=== PATIENT | female | born 1940 | race Caucasian/White ===

== ENCOUNTER 2017-02-19 08:20 | Inpatient (IN) | payer OTHER, MEDICARE ==
[~2017-02-19] VITALS: Ht 165.1 cm; Wt 119.2 kg
[2017-02-19] VITALS (10 sets, daily range): BP systolic 115–156; BP diastolic 64–109; PULSE 113–118; RESP 16–35; TEMP 97.9–98.2; O2SAT 0–99
[~2017-02-19 08:20] MED LIST: ALBU17I INH; AMLO5TAB96 PO; ATEN1TAB73 PO; BUME2TAB PO; CARB200T16 PO; DIGO.125 PO; FLOVENT110 MCG/A INH; IBUP-238 PO; IPRA0.02 INH; LOMO PO; LORT7.5T3 PO; MONT10TA2 PO; PHEN60TA PO; PREM0.622 PO; RANI150 PO; SIMV20 PO; SYNT175T PO
[2017-02-19] MEDS ORDERED: FUROSEMIDE 40 MG/4 ML VIAL IVP ONE ×2 (08:45→13:30)
[2017-02-19] MEDS ORDERED: SODIUM CHLORIDE 0.9% FLUSH 10 ML FLUSH IVF PRN (08:45)
[2017-02-19] MEDS ORDERED: RESP: ALBUTEROL 2.5 MG/IPRATROPIUM 0.5 MG NEB (SCH) INH ONE ×2 (08:45→13:30)
[2017-02-19] MEDS ORDERED: methylPREDNISolone SOD SUCC 125 MG/2 ML VIAL IV PUSH ONE ×2 (08:45→13:30)
--- NOTE | 2017-02-19 08:48 | PD ---
HPI Chief Complaint: Chest Pain Time Seen by Provider: 08:34 Travel History International Travel<30 days: No Contact w/Intl Traveler<30days: No Traveled to known affect area: No History of Present Illness HPI patient states she was feeling chest pain, substernal, 8/10, while at rest, alleviated with 2 ntg sl given by ems...however afterwards ptient c/o lightheadedness and sob....however her next few words were , "i'm going home" " i don't want to be here or stay" I advised patient of abnormal ekg, "it doesn' t matter, i'm 76 y/o and you can't make me stay" all:nkda pmhx:afib recent dx on eliquis, hyperlipidemia, hypothyroid, seizure, htn, copd on 3l nc PFSH Past Medical History Arthritis: Yes Asthma: Yes Autoimmune Disease: No Blood Disorders: No Anxiety: Yes Depression: Yes Heart Rhythm Problems: Yes Cancer: Yes (LEFT BREAST) Cardiovascular Problems: Yes (HTN, CHF, A-FIB ) High Cholesterol: Yes (TWO) Chemotherapy: No Chest Pain: Yes Congestive Heart Failure: Yes COPD: No Cerebrovascular Accident: Yes (6 YEARS AGO) Diabetes: No Diminished Hearing: No Endocrine: Yes GERD: No Glaucoma: No Genitourinary: No Headaches: Yes (BAD HEADACHES) Hepatitis: No Hiatal Hernia: Yes Hypertension: Yes Immune Disorder: No Musculoskeletal: Yes Neurologic: Yes Psychiatric: Yes Reproductive: Yes (HAS HAD A HYSTERECTOMY AND TUBES TIED) Respiratory: Yes (COPD) Myocardial Infarction: Yes Radiation Therapy: No Seizures: Yes (LAST ONE ABOUT 12 YEARS AGO) Sickle Cell Disease: No Sleep Apnea: No Thyroid Disease: Yes (HYPOTHYROIDISM) Ulcer: Yes : 4 Para: 4 Past Surgical History Abdominal Surgery: No AICD: No Appendectomy: No Arteriovenous Shunt: No Cardiac Surgery: No Cholecystectomy: No Ear Surgery: No Endocrine Surgery: No Eye Surgery: No Genitourinary Surgery: No Gynecologic Surgery: Yes (TUBES TIED AND HYSTERECTOMY) Hysterectomy: Yes Insulin Pump: No Joint Replacement: No Oral Surgery: No Pacemaker: No Thoracic Surgery: No Social History Alcohol Use: No Tobacco Use: Yes (PACK AND A HALF A DAY) Substance Use: No Allergies-Medications (Allergen,Severity, Reaction): Coded Allergies: No Known Allergies (Verified Allergy, Mild, 02/19/17) Reported Meds & Prescriptions Reported Meds & Active Scripts Active Motrin (Ibuprofen) 800 Mg Tab 1 Tab PO Q8 Lortab 7.5/500 (Acetaminophen/Hydrocodone Bitart) Tab 1 Tab PO Q6HPRN Reported Tenormin (Atenolol) 25 Mg Tab 25 Mg PO DAILY Lomotil (Diphenoxylate HCl/Atropine) 1 Tab Tab 1 Tab PO Tegretol (Carbamazepine) 200 Mg Tab 200 Mg PO Zocor (Simvastatin) 20 Mg Tab 20 Mg PO HS Bumex (Bumetanide) 2 Mg Tab 2 Mg PO DAILY Atrovent Ud 0.02% (0.5 Mg/2.5 Ml) (Ipratropium [place]) 0.5 Mg/2.5 Ml Nebu 0.5 Mg INH ONCE Flovent HFA (Fluticasone Propionate) 110 Mcg Aero 1 Puff INH BID Singulair (Montelukast Sodium) 10 Mg Tab 10 Mg PO HS Lanoxin (Digoxin) 0.125 Mg Tab 0.125 Mg PO DAILY Zantac (Ranitidine HCl) 150 Mg Tab 150 Mg PO BID Premarin (Estrogens Conjugated) 0.625 Mg Tab 0.625 Mg PO DAILY Proventil Mdi (Albuterol Sulfate) 17 Gm Aero 1 Puff INH Q6 Synthroid (Levothyroxine Sodium) 175 Mcg Tab 175 Mcg PO DAILY Norvasc (Amlodipine Besylate) 5 Mg Tab 5 Mg PO DAILY Phenobarbital 60 Mg Tab 64.8 Mg PO Review of Systems General / Constitutional: No: Fever Eyes: No: Visual changes HENT: No: Headaches Cardiovascular: Positive: Chest Pain or Discomfort Respiratory: Positive: Shortness of Breath Gastrointestinal: No: Abdominal Pain Genitourinary: No: Dysuria Musculoskeletal: No: Pain Skin: No Rash Neurologic: No: Weakness Psychiatric: No: Depression Endocrine: No: Polydipsia Hematologic/Lymphatic: No: Easy Bruising Physical Exam Narrative GENERAL: SKIN: Warm and dry. HEAD: Atraumatic. Normocephalic. EYES: Pupils equal and round. No scleral icterus. No injection or drainage. ENT: No nasal bleeding or discharge. Mucous membranes pink and moist. NECK: Trachea midline. No JVD. CARDIOVASCULAR: Regular rate and rhythm. RESPIRATORY: minimal suprasternal accessory muscle use. decreased tv, wheezy throughout and scattered ronchi GASTROINTESTINAL: Abdomen soft, non-tender, nondistended. MUSCULOSKELETAL: Extremities without clubbing, cyanosis, or edema. No obvious deformities. NEUROLOGICAL: Awake and alert. No obvious cranial nerve deficits. Motor grossly within normal limits. Five out of 5 muscle strength in the arms and legs. Normal speech. PSYCHIATRIC: Appropriate mood and affect; insight and judgment normal. Data Data Last Documented VS Vital Signs Date Time Temp Pulse Resp B/P (MAP) Pulse Ox O2 Delivery O2 Flow Rate FiO2 02/19/17 08:30 98 Nasal Cannula 3.00 02/19/17 08:29 98.2 116 32 144/93 (110) Orders Orders Electrocardiogram (02/19/17 08:34) Complete Blood Count With Diff (02/19/17 08:34) Comprehensive Metabolic Panel (02/19/17 08:34) Prothrombin Time / Inr (Pt) (02/19/17 08:34) Act Partial Throm Time (Ptt) (02/19/17 08:34) Lactic Acid Sepsis Protocol (02/19/17 08:34) Ckmb (Isoenzyme) Profile (02/19/17 08:34) Troponin I (02/19/17 08:34) Urinalysis - C+S If Indicated (02/19/17 08:34) Blood Culture (02/19/17 08:34) Chest, Single Ap (02/19/17 08:34) B-Type Natriuretic Peptide (02/19/17 08:34) Iv Access Insert/Monitor (02/19/17 08:34) Ecg Monitoring (02/19/17 08:34) Oximetry (02/19/17 08:34) Oxygen Administration (02/19/17 08:34) Sodium Chloride 0.9% Flush (Ns Flush) (02/19/17 08:45) Furosemide Inj (Lasix Inj) (02/19/17 08:45) Methylprednisolone So Succ Inj (Solumedr (02/19/17 08:45) Albuterol-Ipratropium Neb (Duoneb Neb) (02/19/17 08:45) Arterial Blood Gas (Abg) (02/19/17 08:48) CKMB (02/19/17 08:31) CKMB% (02/19/17 08:31) Diltiazem Inj (Cardizem Inj) (02/19/17 13:15) Labs Laboratory Tests Test 02/19/17 08:31 02/19/17 08:45 White Blood Count 9.2 TH/MM3 Red Blood Count 4.35 MIL/MM3 Hemoglobin 14.9 GM/DL Hematocrit 43.5 % Mean Corpuscular Volume 100.0 FL Mean Corpuscular Hemoglobin 34.2 PG Mean Corpuscular Hemoglobin Concent 34.2 % Red Cell Distribution Width 15.3 % Platelet Count 238 TH/MM3 Mean Platelet Volume 9.1 FL Neutrophils (%) (Auto) 54.4 % Lymphocytes (%) (Auto) 33.8 % Monocytes (%) (Auto) 8.4 % Eosinophils (%) (Auto) 2.4 % Basophils (%) (Auto) 1.0 % Neutrophils # (Auto) 5.0 TH/MM3 Lymphocytes # (Auto) 3.1 TH/MM3 Monocytes # (Auto) 0.8 TH/MM3 Eosinophils # (Auto) 0.2 TH/MM3 Basophils # (Auto) 0.1 TH/MM3 CBC Comment DIFF FINAL Differential Comment Prothrombin Time 10.4 SEC Prothromb Time International Ratio 1.0 RATIO Activated Partial Thromboplast Time 23.9 SEC Blood Urea Nitrogen 27 MG/DL Creatinine 1.63 MG/DL Random Glucose 179 MG/DL Total Protein 8.1 GM/DL Albumin 3.9 GM/DL Calcium Level 9.3 MG/DL Alkaline Phosphatase 123 U/L Aspartate Amino Transf (AST/SGOT) 21 U/L Alanine Aminotransferase (ALT/SGPT) 26 U/L Total Bilirubin 0.2 MG/DL Sodium Level 139 MEQ/L Potassium Level 3.9 MEQ/L Chloride Level 100 MEQ/L Carbon Dioxide Level 34.1 MEQ/L Anion Gap 5 MEQ/L Estimat Glomerular Filtration Rate 31 ML/MIN Total Creatine Kinase 163 U/L Creatine Kinase MB 1.8 NG/ML Troponin I LESS THAN 0.02 NG/ML B-Type Natriuretic Peptide 229 PG/ML Lactic Acid Level 1.3 mmol/L [facility] Medical Decision Making Medical Screen Exam Complete: Yes Emergency Medical Condition: Yes Medical Record Reviewed: Yes Interpretation(s) aflutter 116, with ?nury on II/III/avf and stdepressions on v1/v2...motion artifact Differential Diagnosis copd exac v stemi v nonstemi V AFLUTTER Narrative Course patient upon arrival noted aflutter with questionable findings , which prompted an urgent bedside evaluation by dr young who spoke with patient at 0925 at bedside. patient refused treatment and refused to stay further in the department. patient signed AMA form and does not wish to receive ANY treatment (solumedrol, inhaler, lasix, cardizem at this point).....of note, patient is a/ o x4, gcs 15, although tj does possess capacity to engage about her healthcare and although i do not agree with her decision making, i will respect her decision to AMA. attempted to call family listed on face sheet from [facility] but unsuccessful (per patient said "good luck talking to them in [place]")...additionally case management involved as well. every attempt was made to care for Ms Jean but she continue to interfere and decline any assistance and insisted on going home. Critical Care Narrative CRITICAL CARE NOTE: With evaluation of the patient, labs, EKG, receipt of radiologic studies, administration of medications, reevaluation the patient and discussion of the patient with the admitting physicians, the total critical care time was [30] minutes. Time to perform other separately billable procedures was not included in the critical care time. Physician Communication Physician Communication discussed case with dr horton who personally reviewed the ekg and believed it was c/w flutter waves and no st elevation was present. spoke with patient personally as well at the bedside....all risks and consequences of her decision to AMA, including , permanent neurologic impairment. AFTER SUCCESSFULLY REACHING DAUGHTER IN [place] AT 1300, PATIENT FINALLY AGREES TO STAY AND WILL RECEIVE TREATMENT AND AGREES TO ADMISSION Diagnosis Primary Impression: aflutter with suspected ACS Additional Impression: COPD exacerbation Admitting Information Admitting Physician Requests: Observation Julien Reece MD Feb 19, 2017 08:48
[2017-02-19 09:11] LABS: BASOPHIL # 0.1 TH/MM3 (0-0.2); EOSINOPHIL # 0.2 TH/MM3 (0-0.4); EOSINOPHIL % 2.4 % (0.0-4.0); HEMATOCRIT 43.5 % (35.0-46.0); HEMOGLOBIN 14.9 GM/DL (11.6-15.3); LYMPH % 33.8 % (9.0-44.0); LYMPHOCYTE # 3.1 TH/MM3 (1.0-4.8); MEAN CORPUSCULAR HEMOGLOBIN 34.2 PG (27.0-34.0); MEAN CORPUSCULAR HGB CONC 34.2 % (32.0-36.0); MEAN PLATELET VOLUME 9.1 FL (7.0-11.0); MONO % 8.4 % (0.0-8.0); MONOCYTE # 0.8 TH/MM3 (0-0.9); NEUT % 54.4 % (16.0-70.0); PLATELET COUNT 238 TH/MM3 (150-450); RED BLOOD COUNT 4.35 MIL/MM3 (4.00-5.30); RED CELL DISTRIBUTION WIDTH 15.3 % (11.6-17.2); WHITE BLOOD COUNT 9.2 TH/MM3 (4.0-11.0)
[2017-02-19 09:20] LABS: PROTHROMBIN TIME - PATIENT 10.4 SEC (9.8-11.6)
[2017-02-19 09:26] LABS: ALT (GPT) 26 U/L (10-53)
[2017-02-19 09:30] LABS: ALKALINE PHOSPHATASE 123 U/L (45-117); TOTAL BILIRUBIN ADULT 0.2 MG/DL (0.2-1.0); TOTAL PROTEIN 8.1 GM/DL (6.4-8.2); TROPONIN I LESS THAN 0.02 NG/ML (0.02-0.05)
[2017-02-19 09:35] LABS: ALBUMIN 3.9 GM/DL (3.4-5.0); AST (GOT) 21 U/L (15-37); BICARBONATE 34.1 MEQ/L (21.0-32.0); BLOOD UREA NITROGEN 27 MG/DL (7-18); CALCIUM 9.3 MG/DL (8.5-10.1); CHLORIDE 100 MEQ/L (98-107); CREATININE 1.63 MG/DL (0.50-1.00); GLOMERULAR FILTRATION RATE 31 ML/MIN (>89); GLUCOSE,RANDOM 179 MG/DL (74-106); SODIUM (NA) 139 MEQ/L (136-145)
--- NOTE | 2017-02-19 09:46 | RADRPT ---
EXAM DATE/TIME: 02/19/2017 08:58 [facility] COMPARISON: No previous studies available for comparison. INDICATIONS : Short of breath. MEDICAL HISTORY : none known SURGICAL HISTORY : none known ENCOUNTER: Initial ACUITY: 1 day PAIN SCORE: Non-responsive. LOCATION: Bilateral chest FINDINGS: A single view of the chest is somewhat limited due to extensive overlying hardware. Lungs are grossly clear. Heart size is borderline prominent but well compensated. Osseous structures are grossly intac t. CONCLUSION: 1. Extensive hardware obscures multiple areas of both hemithoraces. 2. Grossly, lungs are clear without effusion. 3. Heart size is borderline but appears to be well compensated. Pj Angeles MD on February 19, 2017 at 9:42 Board Certified Radiologist. This report was verified electronically.
--- NOTE | 2017-02-19 10:48 | MB ---
cc: PAULIE PICKERING DATE OF CONSULTATION 02/19/2017 REASON FOR CONSULTATION Ms. Jean is a 76-year-old white female with a history of atrial fibrillation. She developed substernal chest pain at rest which was improved with nitroglycerin. She was brought by EMS to the emergency room. By the time she was admitted, she has no chest pain. She was found to have atrial flutter with increased ventricular response of 110 beats per minute. She was supposed to be admitted to the hospital for further observation and management. The patient was seen. The patient, at this time, is refusing any further care and wants to go home. PAST MEDICAL HISTORY Positive for: 1. Atrial fibrillation. The patient was recently started on Eliquis. 2. History of dyslipidemia. 3. Hypothyroidism 4. Seizure disorder 5. Hypertension 6. COPD. She is on three liters of oxygen nasal cannula. 7. History of breast cancer. 8. Congestive heart failure. 9. CVA six years ago. 10. Headaches 11. Hysterectomy 12. Tubal ligation 13. Seizure disorder 14. Hypothyroidism 15. Anxiety/depression 16. Arthritis 17. There is no history of diabetes mellitus or coronary artery disease MEDICATIONS Include: 1. Phenobarbital 2. Norvasc 3. Synthroid 4. Proventil 5. Premarin 6. Zantac 7. Lanoxin 8. Singulair 9. Flovent 10. Atrovent 11. Bumex 12. Zocor 13. Tegretol 14. Lomotil 15. Tenormin 16. Lortab 17. Motrin ALLERGIES None SOCIAL HISTORY The patient is a smoker. She smokes a pack and a half a day. She does not drink alcohol. FAMILY HISTORY Negative for heart disease. REVIEW OF SYSTEMS Otherwise negative. PHYSICAL EXAMINATION Blood pressure 144/93, pulse 110 and irregular. HEENT: Negative. 2+ carotid upstrokes. No bruits. LUNGS: Clear. Decreased breath sounds. HEART: Irregular with no murmur, gallop or rub. ABDOMEN: Soft, obese. No bruits. EXTREMITIES: With trace edema, 1+ distal pulses. NEUROLOGIC: Grossly nonfocal. EKG was reviewed and showed atrial flutter with variable block and no acute changes. LABORATORY DATA Hemoglobin 14.9, potassium 3.9, creatinine 1.63, troponin less than 0.02, CK 123, BNP 229. IMPRESSION 1. Chest pain 2. Atrial flutter with increased ventricular response. 3. History of atrial fibrillation. 4. Chronic CHF 5. Hypertension 6. History of CVA. 7. Renal insufficiency DISPOSITION Ms. Jean was found to have atrial flutter with increased ventricular response. I recommend to continue rate control and titrate her rate control medications. I also recommend to continue anticoagulation with Eliquis. The patient refused admission and decided to go back home. I recommend she follows up with her primary care provider for further care. MD JACQUES Davila/NOELLE /10:12 AM /10:22 AM MTDVianey
[2017-02-19] MEDS ORDERED: MONT10TA2 PO (13:29)
[2017-02-19] MEDS ORDERED: SYMB160A INH (13:29)
[2017-02-19] MEDS ORDERED: DULC10SU3 RECTAL (13:29)
[2017-02-19] MEDS ORDERED: TEGR200T PO (13:29)
[2017-02-19] MEDS ORDERED: COLA100C5 PO (13:29)
[2017-02-19] MEDS ORDERED: TYLE325T PO (13:29)
[2017-02-19] MEDS ORDERED: BUME2TAB PO (13:29)
[2017-02-19] MEDS ORDERED: ROSU20 PO (13:29)
[2017-02-19] MEDS ORDERED: CITRSOL3 PO (13:29)
[2017-02-19] MEDS ORDERED: LEVO175T2 PO (13:29)
[2017-02-19] MEDS ORDERED: DILT1TAB22 PO (13:29)
[2017-02-19] MEDS ORDERED: METO25TA3 PO (13:29)
[2017-02-19] MEDS ORDERED: POTA10TA2 PO (13:29)
[2017-02-19] MEDS ORDERED: NITR0.4S SL (13:29)
[2017-02-19] MEDS ORDERED: VENTAER INH (13:29)
[2017-02-19] MEDS ORDERED: THEO400T2 PO (13:29)
[2017-02-19] MEDS ORDERED: MILKSUS PO (13:29)
[2017-02-19] MEDS ORDERED: DILTIAZEM HCL 25 MG/5 ML VIAL IV PUSH ONE (14:00)
[2017-02-19] MEDS ORDERED: SENNOSIDES 8.6 MG TAB PO PRN (14:45)
[2017-02-19] MEDS ORDERED: ONDANSETRON HCL 4 MG/2 ML VIAL IVP PRN (14:45)
[2017-02-19] MEDS ORDERED: MAGNESIUM HYDROXIDE SUSP 30 ML CUP PO PRN (14:45)
[2017-02-19] MEDS ORDERED: NALOXONE HCL 0.4 MG/ML AMP IV PUSH PRN (14:45)
[2017-02-19] MEDS ORDERED: LACTULOSE SYRUP 20 GM/30 ML CUP PO PRN (14:45)
[2017-02-19] MEDS ORDERED: RESP: ALBUTEROL 2.5 MG/3 ML NEB (PRN) INH (14:45)
[2017-02-19] MEDS ORDERED: BISACODYL 10 MG SUPP RECTAL PRN (14:45)
[2017-02-19] MEDS ORDERED: ACETAMINOPHEN 325 MG TAB PO PRN (14:45)
--- NOTE | 2017-02-19 14:58 | HHI.HP ---
[facility] Unknown Admission Diagnosis COPD EXACERBATION,ATRIAL FLUTTER Diagnoses: Chief Complaint: chest pain and short of breath Travel History International Travel<30 Days: No Contact w/Intl Traveler <30 Da: No Traveled to Known Affected Are: No History of Present Illness 76 years old female with history of atrial fibrillation presented to the ED complaining of substernal chest pain 8 out of 10 at rest nonradiating, improved with 2 of nitroglycerin when sublingual,. Associated with short of breath. No cough no nausea vomiting no diaphoresis Patient had a heart rate of 110 patient initially refused to be admitted but then she agreed. When I saw her she was with no chest pain, she was breathing okay on 2 L nasal cannula . No abdominal pain diarrhea constipation, no dysuria urgency frequency Review of Systems All systems reviewed and was positive for what is mentioned in history of present illness otherwise negative Past Family Social History Past Medical History 1. Atrial fibrillation. The patient was recently started on Eliquis. 2. History of dyslipidemia. 3. Hypothyroidism 4. Seizure disorder 5. Hypertension 6. COPD. She is on three liters of oxygen nasal cannula. 7. History of breast cancer. 8. Congestive heart failure. 9. CVA six years ago. 10. Headaches 11. Hysterectomy 12. Tubal ligation 13. Seizure disorder 14. Hypothyroidism 15. Anxiety/depression 16. Arthritis 17. There is no history of diabetes mellitus or coronary artery disease Past Surgical History As above Allergies: Coded Allergies: No Known Allergies (Verified Allergy, Mild, 02/19/17) Family History Positive for coronary artery disease Social History pack and a half a day. No alcohol or illicit drug abuse Physical Exam Vital Signs Vital Signs Date Time Temp Pulse Resp B/P (MAP) Pulse Ox O2 Delivery O2 Flow Rate FiO2 02/19/17 13:38 116 23 154/85 (108) 0 Nasal Cannula 2.00 02/19/17 13:20 116 18 142/84 (103) 99 Nasal Cannula 2.00 02/19/17 08:30 98 Nasal Cannula 3.00 02/19/17 08:30 97 Nasal Cannula 3.00 02/19/17 08:29 98.2 116 32 144/93 (110 97 Physical Exam GENERAL: This is a well-nourished, well-developed patient, in no apparent distress. SKIN: No rashes, warm and dry HEAD: Atraumatic. Normocephalic. EYES: Pupils equal round and reactive. Extraocular motions intact. No scleral icterus. ENT: Nose without bleeding, or drainage, Airway patent. NECK: Trachea midline. Supple CARDIOVASCULAR: Regular rate and rhythm without murmurs, gallops, or rubs. RESPIRATORY: Fair air entry bilaterally. No wheezes, rales, or rhonchi. GASTROINTESTINAL: Abdomen soft, non-tender, nondistended. Positive bowel sounds MUSCULOSKELETAL: Extremities without clubbing, cyanosis, or edema. Pedal pulses appreciated NEUROLOGICAL: Awake and alert. Moves all extremity. Normal speech.no focal neurological deficit Laboratory Laboratory Tests Test 02/19/17 08:31 02/19/17 08:45 White Blood Count 9.2 Red Blood Count 4.35 Hemoglobin 14.9 Hematocrit 43.5 Mean Corpuscular Volume 100.0 Mean Corpuscular Hemoglobin 34.2 Mean Corpuscular Hemoglobin Concent 34.2 Red Cell Distribution Width 15.3 Platelet Count 238 Mean Platelet Volume 9.1 Neutrophils (%) (Auto) 54.4 Lymphocytes (%) (Auto) 33.8 Monocytes (%) (Auto) 8.4 Eosinophils (%) (Auto) 2.4 Basophils (%) (Auto) 1.0 Neutrophils # (Auto) 5.0 Lymphocytes # (Auto) 3.1 Monocytes # (Auto) 0.8 Eosinophils # (Auto) 0.2 Basophils # (Auto) 0.1 CBC Comment DIFF FINAL Differential Comment Prothrombin Time 10.4 Prothromb Time International Ratio 1.0 Activated Partial Thromboplast Time 23.9 Blood Urea Nitrogen 27 Creatinine 1.63 Random Glucose 179 Total Protein 8.1 Albumin 3.9 Calcium Level 9.3 Alkaline Phosphatase 123 Aspartate Amino Transf (AST/SGOT) 21 Alanine Aminotransferase (ALT/SGPT) 26 Total Bilirubin 0.2 Sodium Level 139 Potassium Level 3.9 Chloride Level 100 Carbon Dioxide Level 34.1 Anion Gap 5 Estimat Glomerular Filtration Rate 31 Total Creatine Kinase 163 Creatine Kinase MB 1.8 Troponin I LESS THAN 0.02 B-Type Natriuretic Peptide 229 Lactic Acid Level 1.3 Date/Time Source Procedure Growth Status 02/19/17 08:50 Blood Peripheral Aerobic Blood Culture Pending Received 02/19/17 08:50 Blood Peripheral Anaerobic Blood Culture Pending Received Result Diagram: 02/19/[id number] Imaging Last Impressions Chest X-Ray 02/19/17833 Signed Impressions: Service Date/Time: Sunday, February 19, 2017 08:58 - CONCLUSION: 1. Extensive hardware obscures multiple areas of both hemithoraces. 2. Grossly, lungs are clear without effusion. 3. Heart size is borderline but appears to be well compensated. Pj Angeles MD EKG sinus rhythm no ST changes Caprini VTE Risk Assessment Caprini VTE Risk Assessment: Mod/High Risk (score >= 2) Caprini Risk Assessment Model Point Value = 1 Point Value = 2 Point Value = 3 Point Value = 5 Age 41-60 Minor surgery BMI > 25 kg/m2 Swollen legs Varicose veins or History of unexplained or recurrent spontaneous Oral contraceptives or hormone replacement Sepsis (< 1 month) Serious lung disease, including pneumonia (< 1 month) Abnormal pulmonary function Acute myocardial infarction Congestive heart failure (< 1 month) History of inflammatory bowel disease Medical patient at bed rest Age 61-74 Arthroscopic surgery Major open surgery (> 45 min) Laparoscopic surgery (> 45 min) Malignancy Confined to bed (> 72 hours) Immobilizing plaster cast Central venous access Age >= 75 History of VTE Family history of VTE Factor V Leiden Prothrombin [id number] Lupus anticoagulant Anticardiolipin antibodies Elevated serum homocysteine Heparin-induced thrombocytopenia Other congenital or acquired thrombophilia Stroke (< 1 month) Elective arthroplasty Hip, pelvis, or leg fracture Acute spinal cord injury (< 1 month) Prophylaxis Regimen Total Risk Factor Score Risk Level Prophylaxis Regimen 0-1 Low Early ambulation 2 Moderate Order ONE of the following: *Sequential Compression Device (SCD) *Heparin 5000 units SQ BID 3-4 Higher Order ONE of the following medications: *Heparin 5000 units SQ TID *Enoxaparin/Lovenox 40 mg SQ daily (WT < 150 kg, CrCl > 30 mL/min) *Enoxaparin/Lovenox 30 mg SQ daily (WT < 150 kg, CrCl > 10-29 mL/min) *Enoxaparin/Lovenox 30 mg SQ BID (WT < 150 kg, CrCl > 30 mL/min) AND/OR *Sequential Compression Device (SCD) 5 or more Highest Order ONE of the following medications: *Heparin 5000 units SQ TID (Preferred with Epidurals) *Enoxaparin/Lovenox 40 mg SQ daily (WT < 150 kg, CrCl > 30 mL/min) *Enoxaparin/Lovenox 30 mg SQ daily (WT < 150 kg, CrCl > 10-29 mL/min) *Enoxaparin/Lovenox 30 mg SQ BID (WT < 150 kg, CrCl > 30 mL/min) AND *Sequential Compression Device (SCD) Assessment and Plan Assessment and Plan 76 years old female admitted with chest pain and short of breath A. fib with RVR COPD exacerbation History of CHF signs of decompensation Hypothyroidism Seizure disorder Hypertension COPD. She is on three liters of oxygen nasal cannula. History of breast cancer. DVT prophylaxis Plan: Admitted with To inpatient with telemetry She received one dose of Cardizem iv, will continue with her metoprolol and by mouth Cardizem Cardiology consult appreciated recommended starting elliquis Oxygen DuoNeb Solu-Medrol for COPD exacerbation BMP, CBC BMP in a.m. PT OT to treat and eval Continue Synthroid, Accu-Chek and ISS Continue Bumex montelukast atorvastatin Theophylline Heparin for DVT prophylaxis Discussed Condition With Patient Physician Certification 2 Midnight Certification Type: Admission for Inpatient Services Order for Inpatient Services The services are ordered in accordance with Medicare regulations or non- Medicare payer requirements, as applicable. In the case of services not specified as inpatient-only, they are appropriately provided as inpatient services in accordance with the 2-midnight benchmark. Estimated LOS (days): 3 days is the estimated time the patient will need to remain in the hospital, assuming treatment plan goals are met and no additional complications. Post-Hospital Plan: Not yet determined Sangita Freed MD Feb 19, 2017 14:58
[2017-02-19] MEDS: RESP: ALBUTEROL 2.5 MG/IPRATROPIUM 0.5 MG NEB (SCH) INH ×2 (15:38→20:12)
[2017-02-19] MEDS ORDERED: HEPARIN SODIUM - SQ 10,000 UNITS/ML VIAL SQ SCH (16:00)
[2017-02-19] MEDS: methylPREDNISolone SOD SUCC 40 MG/1 ML VIAL IV PUSH SCH (16:00)
[2017-02-19] MEDS ORDERED: DILTIAZEM-CD 300 MG CAP ER PO SCH (16:00)
[2017-02-19] MEDS: METOPROLOL TARTRATE 25 MG TAB PO SCH ×2 (17:26→21:44)
[2017-02-19] MEDS: APIXABAN 2.5 MG TABLET PO SCH ×2 (17:50→21:42)
--- NOTE | 2017-02-19 21:01 | EKG ---
Date Performed: 02/19/2017 Time Performed: 08:57:41 PTAGE: 76 years EKG: ATRIAL FLUTTER/TACHYCARDIA WITH RAPID VENTRICULAR RESPONSE PREVIOUS TRACING : 09/27/2006 22.01 Compared to the previous tracing SR no longer present DOCTOR: Wilfred Graham Interpretating Date/Time 02/19/2017 21:00:15
[2017-02-19] MEDS: ATORVASTATIN 40 MG TAB PO SCH (21:41)
[2017-02-19] MEDS: DOCUSATE SODIUM 50 MG/SENNA 8.6 MG TAB PO SCH (21:41)
[2017-02-19] MEDS: MONTELUKAST SODIUM 10 MG TAB PO SCH (21:42)
[2017-02-19] MEDS: carBAMazepine 200 MG TAB PO SCH (21:45)
[2017-02-19] MEDS: BUDESONIDE-FORMOTEROL 160/4.5 MCG INHALER INH SCH (21:45)
[2017-02-19] MEDS: DILTIAZEM-CD 300 MG CAP ER PO SCH (21:53)
[2017-02-20] VITALS (13 sets, daily range): BP systolic 97–131; BP diastolic 62–85; PULSE 81–118; RESP 16–18; TEMP 97.1–98.4; O2SAT 90–97
[2017-02-20] MEDS: methylPREDNISolone SOD SUCC 40 MG/1 ML VIAL IV PUSH SCH ×4 (00:36→23:23)
[2017-02-20] MEDS: RESP: ALBUTEROL 2.5 MG/IPRATROPIUM 0.5 MG NEB (SCH) INH ×4 (03:25→21:15)
[2017-02-20] MEDS: LEVOTHYROXINE SODIUM 100 MCG TAB PO SCH (05:38)
[2017-02-20] MEDS: LEVOTHYROXINE SODIUM 75 MCG TAB PO SCH (05:38)
[2017-02-20] MEDS ORDERED: NON-FORMULARY DRUG (Levothyroxine 175 MCG) PO SCH (09:00)
[2017-02-20] MEDS: DOCUSATE SODIUM 50 MG/SENNA 8.6 MG TAB PO SCH ×2 (10:11→21:20)
[2017-02-20] MEDS: DILTIAZEM-CD 300 MG CAP ER PO SCH (10:11)
[2017-02-20] MEDS: BUDESONIDE-FORMOTEROL 160/4.5 MCG INHALER INH SCH ×2 (10:11→21:22)
[2017-02-20] MEDS: BUMETANIDE 1 MG TAB PO SCH (10:12)
[2017-02-20] MEDS: THEOPHYLLINE 200 MG EXTENDED RELEASE CAP PO SCH (10:12)
[2017-02-20] MEDS: carBAMazepine 200 MG TAB PO SCH ×3 (10:12→17:38)
[2017-02-20] MEDS: APIXABAN 2.5 MG TABLET PO SCH ×2 (10:12→21:20)
[2017-02-20] MEDS: METOPROLOL TARTRATE 25 MG TAB PO SCH ×2 (10:12→21:21)
[2017-02-20] MEDS: guaiFENesin E.R. 600 MG TAB PO SCH ×2 (12:12→21:20)
--- NOTE | 2017-02-20 12:53 | HHI.PR ---
Subjective Remarks Ms. Jean is a 76-year-old white female with a history of atrial fibrillation ON ELIQUIS AND HYPERLIPIDEMIA, HYPOTHYROIDISM, SEIZURE DISORDER, HYPERTENSION, CHRONIC COPD ON OXYGEN,CHF AND ANXIETY/ DEPRESSION. She developed substernal chest pain at rest which was NOTED TO IMPROVE with nitroglycerin. She was brought by EMS to the emergency room. CHEST PAIN RESOLVED BEFORE BEING ADMITTED. She was found to have atrial flutter with increased ventricular response of 110 beats per minute. THEREFORE SHE WAS ADMITTED 02-20 STILL SOB PT AND OT INCREASE ACTIVITY AM LABS DW RN AND PT CONTINUE DUONEBS AND MUCINEX AND STEROID Objective Vitals Vital Signs Date Time Temp Pulse Resp B/P (MAP) Pulse Ox O2 Delivery O2 Flow Rate FiO2 02/20/17 12:13 97.4 116 18 99/62 (74) 94 02/20/17 10:50 94 Nasal Cannula 3.00 02/20/17 09:00 Nasal Cannula 3.00 02/20/17 08:00 98.3 118 18 120/73 (89) 90 02/20/17 08:00 117 02/20/17 04:00 Nasal Cannula 3.00 02/20/17 04:00 81 02/20/17 04:00 97.1 107 16 131/85 (100) 93 02/20/17 03:27 92 Nasal Cannula 3.00 02/20/17 00:00 81 02/20/17 00:00 Nasal Cannula 3.00 02/20/17 00:00 97.6 117 16 108/72 (84) 92 02/19/17 20:15 95 Nasal Cannula 2.00 02/19/17 20:00 114 02/19/17 20:00 Nasal Cannula 3.00 02/19/17 19:00 97.9 113 16 115/69 (84) 93 02/19/17 17:00 118 27 137/64 (88) 97 Nasal Cannula 2.00 02/19/17 16:00 118 17 156/75 (102) 98 Nasal Cannula 2.00 02/19/17 15:00 116 35 152/109 (123) 97 Nasal Cannula 2.00 02/19/17 14:00 116 22 154/85 (108) 99 Nasal Cannula 2.00 02/19/17 13:38 116 23 154/85 (108) 0 Nasal Cannula 2.00 1/10/18 13:20 116 18 142/84 (103) 99 Nasal Cannula 2.00 I/O 02/19/17 02/19/17 02/19/17 02/20/17 02/20/17 02/20/17 07:00 15:00 23:00 07:00 15:00 23:00 Intake Total 240 ml Balance 240 ml Intake Oral 240 ml # Voids 1 Result Diagram: 02/19/17 0831 02/19/17 0831 Other Results Laboratory Tests Test 02/19/17 08:31 02/19/17 08:45 White Blood Count 9.2 TH/MM3 Red Blood Count 4.35 MIL/MM3 Hemoglobin 14.9 GM/DL Hematocrit 43.5 % Mean Corpuscular Volume 100.0 FL Mean Corpuscular Hemoglobin 34.2 PG Mean Corpuscular Hemoglobin Concent 34.2 % Red Cell Distribution Width 15.3 % Platelet Count 238 TH/MM3 Mean Platelet Volume 9.1 FL Neutrophils (%) (Auto) 54.4 % Lymphocytes (%) (Auto) 33.8 % Monocytes (%) (Auto) 8.4 % Eosinophils (%) (Auto) 2.4 % Basophils (%) (Auto) 1.0 % Neutrophils # (Auto) 5.0 TH/MM3 Lymphocytes # (Auto) 3.1 TH/MM3 Monocytes # (Auto) 0.8 TH/MM3 Eosinophils # (Auto) 0.2 TH/MM3 Basophils # (Auto) 0.1 TH/MM3 CBC Comment DIFF FINAL Differential Comment Prothrombin Time 10.4 SEC Prothromb Time International Ratio 1.0 RATIO Activated Partial Thromboplast Time 23.9 SEC Blood Urea Nitrogen 27 MG/DL Creatinine 1.63 MG/DL Random Glucose 179 MG/DL Total Protein 8.1 GM/DL Albumin 3.9 GM/DL Calcium Level 9.3 MG/DL Alkaline Phosphatase 123 U/L Aspartate Amino Transf (AST/SGOT) 21 U/L Alanine Aminotransferase (ALT/SGPT) 26 U/L Total Bilirubin 0.2 MG/DL Sodium Level 139 MEQ/L Potassium Level 3.9 MEQ/L Chloride Level 100 MEQ/L Carbon Dioxide Level 34.1 MEQ/L Anion Gap 5 MEQ/L Estimat Glomerular Filtration Rate 31 ML/MIN Total Creatine Kinase 163 U/L Creatine Kinase MB 1.8 NG/ML Troponin I LESS THAN 0.02 NG/ML B-Type Natriuretic Peptide 229 PG/ML Lactic Acid Level 1.3 mmol/L Imaging Last Impressions Chest X-Ray 02/19/17 0834 Signed Impressions: Service Date/Time: Sunday, February 19, 2017 08:58 - CONCLUSION: 1. Extensive hardware obscures multiple areas of both hemithoraces. 2. Grossly, lungs are clear without effusion. 3. Heart size is borderline but appears to be well compensated. Pj Angeles MD Objective Remarks GENERAL: AWAKE ALERT AND ORIENTED- LESS SOB SKIN: Warm and dry. HEAD: Atraumatic. Normocephalic. EYES: Pupils equal and round. No scleral icterus. No injection or drainage. EOMI ENT: No nasal bleeding or discharge. Mucous membranes pink and moist.TONGUE MIDLINE NECK: Trachea midline. No JVD. CARDIOVASCULAR: IRRegular rate and rhythm. S1, S2 NO S3 OR S4 RESPIRATORY: No accessory muscle use. COARSE WITH WHEEZES. Breath sounds equal bilaterally. GASTROINTESTINAL: Abdomen soft, non-tender, nondistended. Hepatic and splenic margins not palpable. OBESE MUSCULOSKELETAL: Extremities without clubbing, cyanosis, No obvious deformities. +2 LE EDEMA NEUROLOGICAL: Awake and alert. No obvious cranial nerve deficits. Motor grossly within normal limits. 4 out of 5 muscle strength in the arms and legs. Normal speech. PSYCHIATRIC: Appropriate mood and affect; insight and judgment normal. Medications and IVs Current Medications Sodium Chloride (NS Flush) 2 ml UNSCH PRN IVF FLUSH AFTER USING IV ACCESS Last administered on 02/19/17at 10:34; Start 02/19/17 at 08:45 Furosemide (Lasix Inj) 40 mg ONCE ONCE IVP ; Start 02/19/17 at 08:45; Stop 11/27 at 08:46; Status DC Methylprednisolone Sodium Succinate (SoluMEDROL INJ) 125 mg ONCE ONCE IV PUSH ; Start 02/19/17 at 08:45; Stop 02/19/17 at 08:46; Status DC Albuterol/ Ipratropium (Duoneb Neb) 1 ampule ONCE ONCE INH ; Start 02/19/17 at 08:45; Stop 02/19/17 at 08:46; Status DC Diltiazem HCl (Cardizem Inj) 20 mg BOLUS ONCE IV PUSH Last administered on 11/27at 13:38; Start 02/19/17 at 14:00; Stop 02/19/17 at 14:01; Status DC Furosemide (Lasix Inj) 40 mg ONCE ONCE IVP Last administered on 02/19/17at 13: 35; Start 02/19/17 at 13:30; Stop 02/19/17 at 13:31; Status DC Methylprednisolone Sodium Succinate (SoluMEDROL INJ) 125 mg ONCE ONCE IV PUSH Last administered on 02/19/17at 13:34; Start 02/19/17 at 13:30; Stop 02/19/17 at 13:31; Status DC Albuterol/ Ipratropium (Duoneb Neb) 1 ampule ONCE ONCE INH Last administered on 02/19/17at 13:57; Start 02/19/17 at 13:30; Stop 02/19/17 at 13:31; Status DC Budesonide/ Formoterol Fumarate (Symbicort 160-4.5 Mcg Inh) 2 puff Q12HR INH Last administered on 02/20/17at 10:11; Start 02/19/17 at 21:00 Bumetanide (Bumetanide) 2 mg DAILY PO Last administered on 02/20/17at 10:12; Start 02/20/17 at 09:00 Carbamazepine (TEGretol) 200 mg TID PO Last administered on 02/20/17at 10:12; Start 02/19/17 at 18:00 Diltiazem HCl (Cardizem Cd) 300 mg DAILY PO ; Start 02/19/17 at 16:00; Stop 11/27 at 16:00; Status DC Metoprolol Tartrate (Lopressor) 25 mg BID PO Last administered on 02/20/17at 10: 12; Start 02/19/17 at 15:00 Montelukast Sodium (Singulair) 10 mg HS PO Last administered on 02/19/17at 21:42 ; Start 02/19/17 at 21:00 Theophylline (René-24) 400 mg DAILY PO Last administered on 02/20/17at 10:12; Start 02/20/17 at 09:00 Non-Formulary Medication 175 mcg DAILY PO ; Start 02/20/17 at 09:00; Status UNV Atorvastatin Calcium (Lipitor) 40 mg HS PO Last administered on 02/19/17at 21:41 ; Start 02/19/17 at 21:00 Albuterol/ Ipratropium (Duoneb Neb) 1 ampule Q6HR NEB INH Last administered on 02/20/17at 10:49; Start 02/19/17 at 16:00 Albuterol Sulfate (Albuterol Neb) 2.5 mg Q2HR NEB PRN INH SHORTNESS OF BREATH; Start 02/19/17 at 14:45 Methylprednisolone Sodium Succinate (SoluMEDROL INJ) 40 mg Q8H IV PUSH Last administered on 02/20/17at 10:12; Start 02/19/17 at 16:00 Acetaminophen (Tylenol) 650 mg Q4H PRN PO TEMP > 100.4; Start 02/19/17 at 14:45 Ondansetron HCl (Zofran Inj) 4 mg Q6H PRN IVP NAUSEA OR VOMITING; Start at 14:45 Heparin Sodium (Porcine) (Heparin Inj) 5,000 units Q8H SQ ; Start 02/19/17 at 16 :00; Stop 02/19/17 at 16:00; Status DC Naloxone HCl (Narcan Inj) 0.4 mg UNSCH PRN IV PUSH SEE LABEL COMMENTS; Start at 14:45 Senna/Docusate Sodium (Eleni-Colace) 1 tab BID PO Last administered on at 10:11; Start 02/19/17 at 21:00 Magnesium Hydroxide (Milk Of Magnesia Liq) 30 ml Q12H PRN PO Mild constipation ; Start 02/19/17 at 14:45 Sennosides (Senokot) 17.2 mg Q12H PRN PO Moderate constipation; Start 02/19/17 at 14:45 Bisacodyl (Dulcolax Supp) 10 mg DAILY PRN RECTAL SEVERE CONSITIPATION; Start at 14:45 Lactulose (Lactulose Liq) 30 ml DAILY PRN PO SEVERE CONSITIPATION; Start at 14:45 Diltiazem HCl (Cardizem Cd) 300 mg DAILY PO Last administered on 02/20/17at 10: 11; Start 02/19/17 at 20:00 Apixaban (Eliquis) 2.5 mg BID PO Last administered on 02/20/17at 10:12; Start at 16:00 Levothyroxine Sodium (Synthroid) 100 mcg DAILY@0600 PO Last administered on 12/28at 05:38; Start 02/20/17 at 06:00 Levothyroxine Sodium (Synthroid) 75 mcg DAILY@0600 PO Last administered on 02/20at 05:38; Start 02/20/17 at 06:00 Guaifenesin (Mucinex Er) 600 mg BID PO Last administered on 02/20/17at 12:12; Start 02/20/17 at 10:00 A/P Assessment and Plan Atrial fibrillation. The patient was recently started on Eliquis. MEDS PER CARDIO COPD EXACERBATION. She is on three liters of oxygen nasal cannula.CONTINUE DUONEBS AND MUCINEX AND STEROIDS AND INCENTIVE SPIROMETRY History of dyslipidemia. STATIN Hypothyroidism CHECK TSH AND FREE T4 HOME MEDS Seizure disorder CONTINUE HOME MEDS Hypertension GOOD PRESSURE CONTROL History of breast cancer. Congestive heart failure. MONITOR LABS RENAL FUNCTIONS RENAL INSUFFICIENCY- DEHYDRATION VS CHRONIC CVA six years ago. Headaches Hysterectomy Tubal ligation Anxiety/depression HOME MEDICATIONS NEEDS PT AND OT Discharge Planning PENDING IMPROVEMENT Jonel Martinez DO Feb 20, 2017 12:53
[2017-02-20] MEDS ORDERED: DEXTROSE 50% IN WATER 50 ML VIAL(D50) IV PUSH PRN (13:00)
[2017-02-20] MEDS ORDERED: GLUCAGON 1 MG/ML VIAL OTHER PRN (13:00)
[2017-02-20 15:38] LABS: WHITE BLOOD COUNT 10.6 TH/MM3 (4.0-11.0)
[2017-02-20 15:39] LABS: BASOPHIL # 0.1 TH/MM3 (0-0.2); BASOPHIL % 0.5 % (0.0-2.0); EOSINOPHIL % 0.1 % (0.0-4.0); HEMATOCRIT 41.2 % (35.0-46.0); HEMOGLOBIN 13.8 GM/DL (11.6-15.3); LYMPHOCYTE # 1.2 TH/MM3 (1.0-4.8); MEAN CELL VOLUME 98.6 FL (80.0-100.0); MEAN CORPUSCULAR HEMOGLOBIN 33.1 PG (27.0-34.0); MEAN CORPUSCULAR HGB CONC 33.6 % (32.0-36.0); MONO % 3.2 % (0.0-8.0); MONOCYTE # 0.3 TH/MM3 (0-0.9); NEUT % 85.2 % (16.0-70.0); PLATELET COUNT 212 TH/MM3 (150-450); RED BLOOD COUNT 4.18 MIL/MM3 (4.00-5.30); RED CELL DISTRIBUTION WIDTH 15.4 % (11.6-17.2)
[2017-02-20 16:04] LABS: CREATININE 1.59 MG/DL (0.50-1.00)
[2017-02-20] MEDS: INSULIN ASPART SUPPLEMENTAL SCALE SQ SCH ×2 (17:38→21:21)
[2017-02-20] MEDS: MONTELUKAST SODIUM 10 MG TAB PO SCH (21:20)
[2017-02-20] MEDS: ATORVASTATIN 40 MG TAB PO SCH (21:20)
[2017-02-21] VITALS (15 sets, daily range): BP systolic 93–142; BP diastolic 60–89; PULSE 96–135; RESP 18–24; TEMP 97.2–98.2; O2SAT 93–96
[2017-02-21] MEDS: RESP: ALBUTEROL 2.5 MG/IPRATROPIUM 0.5 MG NEB (SCH) INH ×5 (04:39→21:28)
[2017-02-21] MEDS: LEVOTHYROXINE SODIUM 100 MCG TAB PO SCH (05:05)
[2017-02-21] MEDS: LEVOTHYROXINE SODIUM 75 MCG TAB PO SCH (05:05)
[2017-02-21 08:19] LABS: AUTOMATED NEUTROPHIL # 8.6 TH/MM3 (1.8-7.7); BASOPHIL % 0.2 % (0.0-2.0); HEMATOCRIT 39.1 % (35.0-46.0); HEMOGLOBIN 13.7 GM/DL (11.6-15.3); LYMPHOCYTE # 1.6 TH/MM3 (1.0-4.8); MEAN CORPUSCULAR HEMOGLOBIN 34.7 PG (27.0-34.0); MEAN CORPUSCULAR HGB CONC 35.1 % (32.0-36.0); MEAN PLATELET VOLUME 9.2 FL (7.0-11.0); MONO % 3.1 % (0.0-8.0); MONOCYTE # 0.3 TH/MM3 (0-0.9); NEUT % 81.7 % (16.0-70.0); PLATELET COUNT 201 TH/MM3 (150-450); RED BLOOD COUNT 3.95 MIL/MM3 (4.00-5.30); RED CELL DISTRIBUTION WIDTH 15.4 % (11.6-17.2); WHITE BLOOD COUNT 10.5 TH/MM3 (4.0-11.0)
[2017-02-21 08:37] LABS: ALBUMIN 3.9 GM/DL (3.4-5.0); AST (GOT) 10 U/L (15-37); BICARBONATE 31.9 MEQ/L (21.0-32.0); BLOOD UREA NITROGEN 40 MG/DL (7-18); CALCIUM 9.5 MG/DL (8.5-10.1); CHLORIDE 97 MEQ/L (98-107); CREATININE 1.64 MG/DL (0.50-1.00); GLOMERULAR FILTRATION RATE 31 ML/MIN (>89); GLUCOSE,RANDOM 242 MG/DL (74-106); MAGNESIUM 1.9 MG/DL (1.5-2.5); SODIUM (NA) 136 MEQ/L (136-145)
[2017-02-21 08:47] LABS: ALKALINE PHOSPHATASE 104 U/L (45-117); ALT (GPT) 24 U/L (10-53); FREE T4 0.98 NG/DL (0.76-1.46); PHOSPHORUS 2.4 MG/DL (2.5-4.9); TOTAL BILIRUBIN ADULT 0.3 MG/DL (0.2-1.0); TOTAL PROTEIN 7.8 GM/DL (6.4-8.2)
[2017-02-21] MEDS: methylPREDNISolone SOD SUCC 40 MG/1 ML VIAL IV PUSH SCH ×3 (09:48→23:26)
[2017-02-21] MEDS: BUDESONIDE-FORMOTEROL 160/4.5 MCG INHALER INH SCH ×2 (09:49→21:00)
[2017-02-21] MEDS: INSULIN ASPART SUPPLEMENTAL SCALE SQ SCH ×4 (09:49→21:35)
[2017-02-21] MEDS: BUMETANIDE 1 MG TAB PO SCH (09:49)
[2017-02-21] MEDS: APIXABAN 2.5 MG TABLET PO SCH ×2 (09:49→21:08)
[2017-02-21] MEDS: DILTIAZEM-CD 300 MG CAP ER PO SCH (09:49)
[2017-02-21] MEDS: METOPROLOL TARTRATE 25 MG TAB PO SCH ×3 (09:49→23:24)
[2017-02-21] MEDS: THEOPHYLLINE 200 MG EXTENDED RELEASE CAP PO SCH (09:50)
[2017-02-21] MEDS: DOCUSATE SODIUM 50 MG/SENNA 8.6 MG TAB PO SCH ×3 (09:50→21:07)
[2017-02-21] MEDS: guaiFENesin E.R. 600 MG TAB PO SCH ×2 (09:50→21:07)
[2017-02-21] MEDS: carBAMazepine 200 MG TAB PO SCH ×3 (09:50→17:31)
--- NOTE | 2017-02-21 15:34 | HHI.PR ---
Subjective Remarks Ms. Jean is a 76-year-old white female with a history of atrial fibrillation ON ELIQUIS AND HYPERLIPIDEMIA, HYPOTHYROIDISM, SEIZURE DISORDER, HYPERTENSION, CHRONIC COPD ON OXYGEN,CHF AND ANXIETY/ DEPRESSION. She developed substernal chest pain at rest which was NOTED TO IMPROVE with nitroglycerin. She was brought by EMS to the emergency room. CHEST PAIN RESOLVED BEFORE BEING ADMITTED. She was found to have atrial flutter with increased ventricular response of 110 beats per minute. THEREFORE SHE WAS ADMITTED 02-20 STILL SOB PT AND OT INCREASE ACTIVITY AM LABS DW RN AND PT CONTINUE DUONEBS AND MUCINEX AND STEROID 02-21 PATIENT NOTED TO FALL TODAY CONFUSED DENIES ANY INJURIES FROM FALL NEEDS TO GO TO SNF DW RN AND PT COMPLAINS OF PAIN FROM KNEES AND HEADACHES Objective Vitals Vital Signs Date Time Temp Pulse Resp B/P (MAP) Pulse Ox O2 Delivery O2 Flow Rate FiO2 02/21/17 12:09 98.1 122 20 138/82 (100) 94 02/21/17 12:00 122 02/21/17 09:55 Nasal Cannula 3.00 02/21/17 09:19 94 Nasal Cannula 3.00 02/21/17 08:09 97.9 135 22 107/68 (81) 94 02/21/17 08:00 116 02/21/17 04:06 115 02/21/17 04:00 Nasal Cannula 3.00 02/21/17 04:00 97.9 114 20 142/78 (99) 93 02/21/17 00:11 96 02/21/17 00:00 Nasal Cannula 3.00 02/21/17 00:00 97.5 115 18 93/60 (71) 96 02/20/17 21:30 Nasal Cannula 3.00 02/20/17 21:18 97 Nasal Cannula 3.00 02/20/17 20:29 117 02/20/17 20:00 98.0 109 16 121/70 (87) 96 02/20/17 16:39 117 02/20/17 16:09 98.4 116 18 97/70 (79) 94 02/20/17 16:00 Nasal Cannula 3.00 I/O 02/20/17 02/20/17 02/20/17 02/21/17 02/21/17 02/21/17 07:00 15:00 23:00 07:00 15:00 23:00 Intake Total 240 ml 480 ml 480 ml Output Total 450 ml Balance 240 ml 480 ml 30 ml Intake Oral 240 ml 480 ml 480 ml Output Urine Total 450 ml # Voids 1 2 # Bowel Movements 0 Result Diagram: 02/21/17 0646 02/21/17 0646 Other Results Laboratory Tests Test 02/19/17 08:31 02/19/17 08:45 02/20/17 15:04 02/21/17 06:46 White Blood Count 9.2 TH/MM3 10.6 TH/MM3 10.5 TH/MM3 Red Blood Count 4.35 MIL/MM3 4.18 MIL/MM3 3.95 MIL/MM3 Hemoglobin 14.9 GM/DL 13.8 GM/DL 13.7 GM/DL Hematocrit 43.5 % 41.2 % 39.1 % Mean Corpuscular Volume 100.0 FL 98.6 FL 99.0 FL Mean Corpuscular Hemoglobin 34.2 PG 33.1 PG 34.7 PG Mean Corpuscular Hemoglobin Concent 34.2 % 33.6 % 35.1 % Red Cell Distribution Width 15.3 % 15.4 % 15.4 % Platelet Count 238 TH/MM3 212 TH/MM3 201 TH/MM3 Mean Platelet Volume 9.1 FL 9.0 FL 9.2 FL Neutrophils (%) (Auto) 54.4 % 85.2 % 81.7 % Lymphocytes (%) (Auto) 33.8 % 11.0 % 15.0 % Monocytes (%) (Auto) 8.4 % 3.2 % 3.1 % Eosinophils (%) (Auto) 2.4 % 0.1 % 0.0 % Basophils (%) (Auto) 1.0 % 0.5 % 0.2 % Neutrophils # (Auto) 5.0 TH/MM3 9.0 TH/MM3 8.6 TH/MM3 Lymphocytes # (Auto) 3.1 TH/MM3 1.2 TH/MM3 1.6 TH/MM3 Monocytes # (Auto) 0.8 TH/MM3 0.3 TH/MM3 0.3 TH/MM3 Eosinophils # (Auto) 0.2 TH/MM3 0.0 TH/MM3 0.0 TH/MM3 Basophils # (Auto) 0.1 TH/MM3 0.1 TH/MM3 0.0 TH/MM3 CBC Comment DIFF FINAL DIFF FINAL DIFF FINAL Differential Comment Prothrombin Time 10.4 SEC Prothromb Time International Ratio 1.0 RATIO Activated Partial Thromboplast Time 23.9 SEC Blood Urea Nitrogen 27 MG/DL 35 MG/DL 40 MG/DL Creatinine 1.63 MG/DL 1.59 MG/DL 1.64 MG/DL Random Glucose 179 MG/DL 299 MG/DL 242 MG/DL Total Protein 8.1 GM/DL 7.8 GM/DL Albumin 3.9 GM/DL 3.9 GM/DL Calcium Level 9.3 MG/DL 9.0 MG/DL 9.5 MG/DL Alkaline Phosphatase 123 U/L 104 U/L Aspartate Amino Transf (AST/SGOT) 21 U/L 10 U/L Alanine Aminotransferase (ALT/SGPT) 26 U/L 24 U/L Total Bilirubin 0.2 MG/DL 0.3 MG/DL Sodium Level 139 MEQ/L 136 MEQ/L 136 MEQ/L Potassium Level 3.9 MEQ/L 4.2 MEQ/L 4.2 MEQ/L Chloride Level 100 MEQ/L 99 MEQ/L 97 MEQ/L Carbon Dioxide Level 34.1 MEQ/L 29.0 MEQ/L 31.9 MEQ/L Anion Gap 5 MEQ/L 8 MEQ/L 7 MEQ/L Estimat Glomerular Filtration Rate 31 ML/MIN 32 ML/MIN 31 ML/MIN Total Creatine Kinase 163 U/L Creatine Kinase MB 1.8 NG/ML Troponin I LESS THAN 0.02 NG/ML B-Type Natriuretic Peptide 229 PG/ML Lactic Acid Level 1.3 mmol/L Phosphorus Level 2.4 MG/DL Magnesium Level 1.9 MG/DL Free Thyroxine 0.98 NG/DL Thyroid Stimulating Hormone 3rd Gen 3.600 uIU/ML Imaging Last Impressions Chest X-Ray 02/19/17 0834 Signed Impressions: Service Date/Time: Sunday, February 19, 2017 08:58 - CONCLUSION: 1. Extensive hardware obscures multiple areas of both hemithoraces. 2. Grossly, lungs are clear without effusion. 3. Heart size is borderline but appears to be well compensated. Pj Angeles MD Objective Remarks GENERAL: AWAKE ALERT AND ORIENTED- LESS SOB SKIN: Warm and dry. HEAD: Atraumatic. Normocephalic. EYES: Pupils equal and round. No scleral icterus. No injection or drainage. EOMI ENT: No nasal bleeding or discharge. Mucous membranes pink and moist.TONGUE MIDLINE NECK: Trachea midline. No JVD. CARDIOVASCULAR: IRRegular rate and rhythm. S1, S2 NO S3 OR S4 RESPIRATORY: No accessory muscle use. COARSE WITH WHEEZES. Breath sounds equal bilaterally. GASTROINTESTINAL: Abdomen soft, non-tender, nondistended. Hepatic and splenic margins not palpable. OBESE MUSCULOSKELETAL: Extremities without clubbing, cyanosis, No obvious deformities. +2 LE EDEMA NEUROLOGICAL: Awake and alert. No obvious cranial nerve deficits. Motor grossly within normal limits. 4 out of 5 muscle strength in the arms and legs. Normal speech. PSYCHIATRIC: INAppropriate mood and affect; insight and judgment ABnormal. Medications and IVs Current Medications Sodium Chloride (NS Flush) 2 ml UNSCH PRN IVF FLUSH AFTER USING IV ACCESS Last administered on 02/19/17at 10:34; Start 02/19/17 at 08:45 Furosemide (Lasix Inj) 40 mg ONCE ONCE IVP ; Start 02/19/17 at 08:45; Stop 11/27 at 08:46; Status DC Methylprednisolone Sodium Succinate (SoluMEDROL INJ) 125 mg ONCE ONCE IV PUSH ; Start 02/19/17 at 08:45; Stop 02/19/17 at 08:46; Status DC Albuterol/ Ipratropium (Duoneb Neb) 1 ampule ONCE ONCE INH ; Start 02/19/17 at 08:45; Stop 02/19/17 at 08:46; Status DC Diltiazem HCl (Cardizem Inj) 20 mg BOLUS ONCE IV PUSH Last administered on 11/27at 13:38; Start 02/19/17 at 14:00; Stop 02/19/17 at 14:01; Status DC Furosemide (Lasix Inj) 40 mg ONCE ONCE IVP Last administered on 02/19/17at 13: 35; Start 02/19/17 at 13:30; Stop 02/19/17 at 13:31; Status DC Methylprednisolone Sodium Succinate (SoluMEDROL INJ) 125 mg ONCE ONCE IV PUSH Last administered on 02/19/17at 13:34; Start 02/19/17 at 13:30; Stop 02/19/17 at 13:31; Status DC Albuterol/ Ipratropium (Duoneb Neb) 1 ampule ONCE ONCE INH Last administered on 02/19/17at 13:57; Start 02/19/17 at 13:30; Stop 02/19/17 at 13:31; Status DC Budesonide/ Formoterol Fumarate (Symbicort 160-4.5 Mcg Inh) 2 puff Q12HR INH Last administered on 02/21/17 09:49; Start 02/19/17 at 21:00 Bumetanide (Bumetanide) 2 mg DAILY PO Last administered on 02/21/17 09:49; Start 02/20/17 at 09:00 Carbamazepine (TEGretol) 200 mg TID PO Last administered on 02/21/17 09:50; Start 02/19/17 at 18:00 Diltiazem HCl (Cardizem Cd) 300 mg DAILY PO ; Start 02/19/17 at 16:00; Stop 11/27 at 16:00; Status DC Metoprolol Tartrate (Lopressor) 25 mg BID PO Last administered on 02/21/17 09: 49; Start 02/19/17 at 15:00 Montelukast Sodium (Singulair) 10 mg HS PO Last administered on 02/20/17at 21:20 ; Start 02/19/17 at 21:00 Theophylline (René-24) 400 mg DAILY PO Last administered on 02/21/17 09:50; Start 02/20/17 at 09:00 Non-Formulary Medication 175 mcg DAILY PO ; Start 02/20/17 at 09:00; Status UNV Atorvastatin Calcium (Lipitor) 40 mg HS PO Last administered on 02/20/17at 21:20 ; Start 02/19/17 at 21:00 Albuterol/ Ipratropium (Duoneb Neb) 1 ampule Q6HR NEB INH Last administered on 02/21/17at 09:08; Start 02/19/17 at 16:00 Albuterol Sulfate (Albuterol Neb) 2.5 mg Q2HR NEB PRN INH SHORTNESS OF BREATH; Start 02/19/17 at 14:45 Methylprednisolone Sodium Succinate (SoluMEDROL INJ) 40 mg Q8H IV PUSH Last administered on 02/21/17at 09:48; Start 02/19/17 at 16:00 Acetaminophen (Tylenol) 650 mg Q4H PRN PO TEMP > 100.4; Start 02/19/17 at 14:45 Ondansetron HCl (Zofran Inj) 4 mg Q6H PRN IVP NAUSEA OR VOMITING; Start at 14:45 Heparin Sodium (Porcine) (Heparin Inj) 5,000 units Q8H SQ ; Start 02/19/17 at 16 :00; Stop 02/19/17 at 16:00; Status DC Naloxone HCl (Narcan Inj) 0.4 mg UNSCH PRN IV PUSH SEE LABEL COMMENTS; Start at 14:45 Senna/Docusate Sodium (Eleni-Colace) 1 tab BID PO Last administered on at 09:50; Start 02/19/17 at 21:00 Magnesium Hydroxide (Milk Of Magnesia Liq) 30 ml Q12H PRN PO Mild constipation ; Start 02/19/17 at 14:45 Sennosides (Senokot) 17.2 mg Q12H PRN PO Moderate constipation; Start 02/19/17 at 14:45 Bisacodyl (Dulcolax Supp) 10 mg DAILY PRN RECTAL SEVERE CONSITIPATION; Start at 14:45 Lactulose (Lactulose Liq) 30 ml DAILY PRN PO SEVERE CONSITIPATION; Start at 14:45 Diltiazem HCl (Cardizem Cd) 300 mg DAILY PO Last administered on 02/21/17at 09: 49; Start 02/19/17 at 20:00 Apixaban (Eliquis) 2.5 mg BID PO Last administered on 02/21/17at 09:49; Start at 16:00 Levothyroxine Sodium (Synthroid) 100 mcg DAILY@0600 PO Last administered on 01/27at 05:05; Start 02/20/17 at 06:00 Levothyroxine Sodium (Synthroid) 75 mcg DAILY@0600 PO Last administered on 02/21at 05:05; Start 02/20/17 at 06:00 Guaifenesin (Mucinex Er) 600 mg BID PO Last administered on 02/21/17at 09:50; Start 02/20/17 at 10:00 Dextrose (D50w (Vial) Inj) 50 ml UNSCH PRN IV PUSH HYPOGLYCEMIA-SEE COMMENTS; Start 02/20/17 at 13:00 Glucagon (Glucagon Inj) 1 mg UNSCH PRN OTHER HYPOGLYCEMIA-SEE COMMENTS; Start 02/20/17 at 13:00 Insulin Aspart (NovoLOG SUPPLEMENTAL SCALE) 1 ACHS SLIDING SCALE SQ Last administered on 02/21/17at 09:49; Start 02/20/17 at 17:00 A/P Assessment and Plan Atrial fibrillation. The patient was recently started on Eliquis. MEDS PER CARDIO COPD EXACERBATION. She is on three liters of oxygen nasal cannula.CONTINUE DUONEBS AND MUCINEX AND STEROIDS AND INCENTIVE SPIROMETRY History of dyslipidemia. STATIN Hypothyroidism CHECK TSH AND FREE T4 HOME MEDS Seizure disorder CONTINUE HOME MEDS Hypertension GOOD PRESSURE CONTROL History of breast cancer. Congestive heart failure. MONITOR LABS RENAL FUNCTIONS RENAL INSUFFICIENCY- DEHYDRATION VS CHRONIC CVA six years ago. Headaches Hysterectomy Tubal ligation Anxiety/depression HOME MEDICATIONS NEEDS PT AND OT NEEDS SNF PT RECOMMENDS SNF Discharge Planning PENDING IMPROVEMENT Jonel Martinez DO Feb 21, 2017 15:34
[2017-02-21] MEDS ORDERED: oxyCODONE/ACETAMINOPHEN 5 MG/325 MG TAB PO PRN (15:45)
[2017-02-21] MEDS ORDERED: ACETAMINOPHEN 325 MG TAB PO PRN ×2 (15:45)
[2017-02-21] MEDS ORDERED: ONDANSETRON HCL 4 MG/2 ML VIAL IVP PRN (15:45)
[2017-02-21] MEDS ORDERED: MAGNESIUM HYDROXIDE SUSP 30 ML CUP PO PRN (15:45)
[2017-02-21] MEDS ORDERED: SENNOSIDES 8.6 MG TAB PO PRN (15:45)
[2017-02-21] MEDS ORDERED: METOCLOPRAMIDE HCL 10 MG/2 ML VIAL IV PUSH PRN (15:45)
[2017-02-21] MEDS ORDERED: MORPHINE SULFATE 2 MG/ML INJ IV PUSH PRN ×2 (15:45)
[2017-02-21] MEDS ORDERED: oxyCODONE/ACETAMINOPHEN 10 MG/325 MG TAB PO PRN (15:45)
[2017-02-21] MEDS ORDERED: BISACODYL 10 MG SUPP RECTAL PRN (15:45)
[2017-02-21] MEDS ORDERED: NALOXONE HCL 0.4 MG/ML AMP IV PUSH PRN (15:45)
[2017-02-21] MEDS ORDERED: LACTULOSE SYRUP 20 GM/30 ML CUP PO PRN (15:45)
[2017-02-21 15:54] LABS: HEMOGLOBIN A1C 7.9 % (4.3-6.0)
[2017-02-21] MEDS: MONTELUKAST SODIUM 10 MG TAB PO SCH (21:08)
[2017-02-21] MEDS: ATORVASTATIN 40 MG TAB PO SCH (21:08)
[2017-02-21] MEDS ORDERED: HALOPERIDOL LACTATE 5 MG/ML AMP IM ONE (23:00)
[2017-02-22] VITALS (9 sets, daily range): BP systolic 103–129; BP diastolic 60–78; PULSE 99–124; RESP 18–20; TEMP 97.1–97.8; O2SAT 92–94
[2017-02-22 00:30] LABS: BACTERIA, URINE FEW /hpf; BILIRUBIN, URINE NEG (NEG); BLOOD, URINE NEG (NEG); GLUCOSE,URINE NEG (NEG); HYALINE CAST, URINE 4 /lpf (RARE); KETONE, URINE NEG (NEG); MUCUS URINE MANY /lpf (OCC); NITRITE,URINE NEG (NEG); SQUAMOUS EPITHELIAL CELL URINE 44 /hpf (0-5); URINE COLOR YELLOW (YELLW/STRAW); URINE LEUKOCYTE ESTERASE SMALL (NEG)
[2017-02-22] MEDS: RESP: ALBUTEROL 2.5 MG/IPRATROPIUM 0.5 MG NEB (SCH) INH ×3 (03:27→16:00)
[2017-02-22] MEDS: LEVOTHYROXINE SODIUM 100 MCG TAB PO SCH (05:57)
[2017-02-22] MEDS: LEVOTHYROXINE SODIUM 75 MCG TAB PO SCH (05:57)
[2017-02-22 08:22] LABS: AUTOMATED NEUTROPHIL # 9.5 TH/MM3 (1.8-7.7); BASOPHIL % 0.1 % (0.0-2.0); HEMATOCRIT 42.7 % (35.0-46.0); HEMOGLOBIN 14.5 GM/DL (11.6-15.3); LYMPH % 18.4 % (9.0-44.0); LYMPHOCYTE # 2.2 TH/MM3 (1.0-4.8); MEAN CELL VOLUME 99.6 FL (80.0-100.0); MEAN CORPUSCULAR HEMOGLOBIN 33.8 PG (27.0-34.0); MEAN CORPUSCULAR HGB CONC 33.9 % (32.0-36.0); MEAN PLATELET VOLUME 9.1 FL (7.0-11.0); MONO % 3.7 % (0.0-8.0); MONOCYTE # 0.5 TH/MM3 (0-0.9); NEUT % 77.8 % (16.0-70.0); PLATELET COUNT 203 TH/MM3 (150-450); RED BLOOD COUNT 4.28 MIL/MM3 (4.00-5.30); RED CELL DISTRIBUTION WIDTH 15.8 % (11.6-17.2); WHITE BLOOD COUNT 12.2 TH/MM3 (4.0-11.0)
[2017-02-22] MEDS: APIXABAN 2.5 MG TABLET PO SCH (08:34)
[2017-02-22] MEDS: THEOPHYLLINE 200 MG EXTENDED RELEASE CAP PO SCH (08:34)
[2017-02-22] MEDS: METOPROLOL TARTRATE 25 MG TAB PO SCH (08:34)
[2017-02-22] MEDS: guaiFENesin E.R. 600 MG TAB PO SCH (08:34)
[2017-02-22] MEDS: DOCUSATE SODIUM 50 MG/SENNA 8.6 MG TAB PO SCH (08:35)
[2017-02-22] MEDS: carBAMazepine 200 MG TAB PO SCH ×2 (08:35→12:25)
[2017-02-22] MEDS: BUMETANIDE 1 MG TAB PO SCH (08:35)
[2017-02-22] MEDS: DILTIAZEM-CD 300 MG CAP ER PO SCH (08:35)
[2017-02-22] MEDS: BUDESONIDE-FORMOTEROL 160/4.5 MCG INHALER INH SCH (08:36)
[2017-02-22] MEDS: INSULIN ASPART SUPPLEMENTAL SCALE SQ SCH ×2 (08:37→12:26)
[2017-02-22 08:55] LABS: ALKALINE PHOSPHATASE 104 U/L (45-117); ALT (GPT) 26 U/L (10-53); TOTAL BILIRUBIN ADULT 0.3 MG/DL (0.2-1.0); TOTAL PROTEIN 8.4 GM/DL (6.4-8.2)
[2017-02-22 09:01] LABS: AST (GOT) 17 U/L (15-37); BICARBONATE 26.3 MEQ/L (21.0-32.0); BLOOD UREA NITROGEN 48 MG/DL (7-18); CALCIUM 9.5 MG/DL (8.5-10.1); CHLORIDE 100 MEQ/L (98-107); CREATININE 1.64 MG/DL (0.50-1.00); GLOMERULAR FILTRATION RATE 31 ML/MIN (>89); GLUCOSE,RANDOM 214 MG/DL (74-106); MAGNESIUM 1.9 MG/DL (1.5-2.5); SODIUM (NA) 135 MEQ/L (136-145)
[2017-02-22] MEDS: methylPREDNISolone SOD SUCC 40 MG/1 ML VIAL IV PUSH SCH ×2 (10:28→15:39)
--- NOTE | 2017-02-22 12:46 | HHI.PR ---
Subjective Remarks Ms. Jean is a 76-year-old white female with a history of atrial fibrillation ON ELIQUIS AND HYPERLIPIDEMIA, HYPOTHYROIDISM, SEIZURE DISORDER, HYPERTENSION, CHRONIC COPD ON OXYGEN,CHF AND ANXIETY/ DEPRESSION. She developed substernal chest pain at rest which was NOTED TO IMPROVE with nitroglycerin. She was brought by EMS to the emergency room. CHEST PAIN RESOLVED BEFORE BEING ADMITTED. She was found to have atrial flutter with increased ventricular response of 110 beats per minute. THEREFORE SHE WAS ADMITTED 02-20 STILL SOB PT AND OT INCREASE ACTIVITY AM LABS DW RN AND PT CONTINUE DUONEBS AND MUCINEX AND STEROID 02-21 PATIENT NOTED TO FALL TODAY CONFUSED DENIES ANY INJURIES FROM FALL NEEDS TO GO TO SNF DW RN AND PT COMPLAINS OF PAIN FROM KNEES AND HEADACHES 02-22 LESS SOB NEEDS SNF DC TO SNF WHEN BED AVAILABLE DW RN AND PT Objective Vitals Vital Signs Date Time Temp Pulse Resp B/P (MAP) Pulse Ox O2 Delivery O2 Flow Rate FiO2 02/22/17 09:35 93 Nasal Cannula 3.00 02/22/17 08:10 97.7 118 20 123/78 (93) 93 02/22/17 08:00 118 02/22/17 06:10 97.1 116 18 129/74 (92) 92 02/22/17 04:06 99 02/22/17 03:30 94 Nasal Cannula 3.00 02/22/17 00:24 114 02/21/17 23:20 97.5 108 19 108/89 (95) 93 02/21/17 21:35 Nasal Cannula 3.00 02/21/17 20:13 117 02/21/17 20:00 97.2 117 24 93 02/21/17 18:49 119 02/21/17 16:09 98.2 122 20 121/72 (88) 93 02/21/17 16:00 Nasal Cannula 3.00 02/21/17 15:43 94 Nasal Cannula 3.00 I/O 02/21/17 02/21/17 02/21/17 02/22/17 02/22/17 02/22/17 07:00 15:00 23:00 07:00 15:00 23:00 Intake Total 480 ml 720 ml 840 ml Output Total 450 ml Balance 30 ml 720 ml 840 ml Intake Oral 480 ml 720 ml 840 ml Output Urine Total 450 ml # Voids 6 3 # Bowel Movements 0 0 Result Diagram: 02/22/17 0740 02/22/17 0740 Other Results Laboratory Tests Test 02/20/17 15:04 02/21/17 06:46 02/21/17 23:10 02/22/17 07:40 White Blood Count 10.6 TH/MM3 10.5 TH/MM3 12.2 TH/MM3 Red Blood Count 4.18 MIL/MM3 3.95 MIL/MM3 4.28 MIL/MM3 Hemoglobin 13.8 GM/DL 13.7 GM/DL 14.5 GM/DL Hematocrit 41.2 % 39.1 % 42.7 % Mean Corpuscular Volume 98.6 FL 99.0 FL 99.6 FL Mean Corpuscular Hemoglobin 33.1 PG 34.7 PG 33.8 PG Mean Corpuscular Hemoglobin Concent 33.6 % 35.1 % 33.9 % Red Cell Distribution Width 15.4 % 15.4 % 15.8 % Platelet Count 212 TH/MM3 201 TH/MM3 203 TH/MM3 Mean Platelet Volume 9.0 FL 9.2 FL 9.1 FL Neutrophils (%) (Auto) 85.2 % 81.7 % 77.8 % Lymphocytes (%) (Auto) 11.0 % 15.0 % 18.4 % Monocytes (%) (Auto) 3.2 % 3.1 % 3.7 % Eosinophils (%) (Auto) 0.1 % 0.0 % 0.0 % Basophils (%) (Auto) 0.5 % 0.2 % 0.1 % Neutrophils # (Auto) 9.0 TH/MM3 8.6 TH/MM3 9.5 TH/MM3 Lymphocytes # (Auto) 1.2 TH/MM3 1.6 TH/MM3 2.2 TH/MM3 Monocytes # (Auto) 0.3 TH/MM3 0.3 TH/MM3 0.5 TH/MM3 Eosinophils # (Auto) 0.0 TH/MM3 0.0 TH/MM3 0.0 TH/MM3 Basophils # (Auto) 0.1 TH/MM3 0.0 TH/MM3 0.0 TH/MM3 CBC Comment DIFF FINAL DIFF FINAL DIFF FINAL Differential Comment Blood Urea Nitrogen 35 MG/DL 40 MG/DL 48 MG/DL Creatinine 1.59 MG/DL 1.64 MG/DL 1.64 MG/DL Random Glucose 299 MG/DL 242 MG/DL 214 MG/DL Calcium Level 9.0 MG/DL 9.5 MG/DL 9.5 MG/DL Sodium Level 136 MEQ/L 136 MEQ/L 135 MEQ/L Potassium Level 4.2 MEQ/L 4.2 MEQ/L 4.5 MEQ/L Chloride Level 99 MEQ/L 97 MEQ/L 100 MEQ/L Carbon Dioxide Level 29.0 MEQ/L 31.9 MEQ/L 26.3 MEQ/L Anion Gap 8 MEQ/L 7 MEQ/L 9 MEQ/L Estimat Glomerular Filtration Rate 32 ML/MIN 31 ML/MIN 31 ML/MIN Total Protein 7.8 GM/DL 8.4 GM/DL Albumin 3.9 GM/DL 4.0 GM/DL Phosphorus Level 2.4 MG/DL 3.0 MG/DL Magnesium Level 1.9 MG/DL 1.9 MG/DL Alkaline Phosphatase 104 U/L 104 U/L Aspartate Amino Transf (AST/SGOT) 10 U/L 17 U/L Alanine Aminotransferase (ALT/SGPT) 24 U/L 26 U/L Total Bilirubin 0.3 MG/DL 0.3 MG/DL Hemoglobin A1c 7.9 % Free Thyroxine 0.98 NG/DL Thyroid Stimulating Hormone 3rd Gen 3.600 uIU/ML Urine Color YELLOW Urine Turbidity HAZY Urine pH 5.0 Urine Specific [place] 1.021 Urine Protein 30 mg/dL Urine Glucose (UA) NEG mg/dL Urine Ketones NEG mg/dL Urine Occult Blood NEG Urine Nitrite NEG Urine Bilirubin NEG Urine Urobilinogen LESS THAN 2.0 MG/DL Urine Leukocyte Esterase SMALL Urine RBC 1 /hpf Urine WBC 8 /hpf Urine Squamous Epithelial Cells 44 /hpf Urine Bacteria FEW /hpf Urine Hyaline Casts 4 /lpf Urine Mucus MANY /lpf Microscopic Urinalysis Comment CULTURE INDICATED B-Type Natriuretic Peptide 458 PG/ML Imaging Last Impressions Chest X-Ray 02/19/17 0834 Signed Impressions: Service Date/Time: Sunday, February 19, 2017 08:58 - CONCLUSION: 1. Extensive hardware obscures multiple areas of both hemithoraces. 2. Grossly, lungs are clear without effusion. 3. Heart size is borderline but appears to be well compensated. Pj Angeles MD Objective Remarks GENERAL: AWAKE ALERT AND ORIENTED- LESS SOB SKIN: Warm and dry. HEAD: Atraumatic. Normocephalic. EYES: Pupils equal and round. No scleral icterus. No injection or drainage. EOMI ENT: No nasal bleeding or discharge. Mucous membranes pink and moist.TONGUE MIDLINE NECK: Trachea midline. No JVD. CARDIOVASCULAR: IRRegular rate and rhythm. S1, S2 NO S3 OR S4 RESPIRATORY: No accessory muscle use. COARSE WITH WHEEZES. Breath sounds equal bilaterally. GASTROINTESTINAL: Abdomen soft, non-tender, nondistended. Hepatic and splenic margins not palpable. OBESE MUSCULOSKELETAL: Extremities without clubbing, cyanosis, No obvious deformities. +2 LE EDEMA NEUROLOGICAL: Awake and alert. No obvious cranial nerve deficits. Motor grossly within normal limits. 4 out of 5 muscle strength in the arms and legs. Normal speech. PSYCHIATRIC: INAppropriate mood and affect; insight and judgment ABnormal. Procedures NO Medications and IVs Current Medications Sodium Chloride (NS Flush) 2 ml UNSCH PRN IVF FLUSH AFTER USING IV ACCESS Last administered on 02/19/17at 10:34; Start 02/19/17 at 08:45 Furosemide (Lasix Inj) 40 mg ONCE ONCE IVP ; Start 02/19/17 at 08:45; Stop 11/27 at 08:46; Status DC Methylprednisolone Sodium Succinate (SoluMEDROL INJ) 125 mg ONCE ONCE IV PUSH ; Start 02/19/17 at 08:45; Stop 02/19/17 at 08:46; Status DC Albuterol/ Ipratropium (Duoneb Neb) 1 ampule ONCE ONCE INH ; Start 02/19/17 at 08:45; Stop 02/19/17 at 08:46; Status DC Diltiazem HCl (Cardizem Inj) 20 mg BOLUS ONCE IV PUSH Last administered on 11/27at 13:38; Start 02/19/17 at 14:00; Stop 02/19/17 at 14:01; Status DC Furosemide (Lasix Inj) 40 mg ONCE ONCE IVP Last administered on 02/19/17at 13: 35; Start 02/19/17 at 13:30; Stop 02/19/17 at 13:31; Status DC Methylprednisolone Sodium Succinate (SoluMEDROL INJ) 125 mg ONCE ONCE IV PUSH Last administered on 02/19/17at 13:34; Start 02/19/17 at 13:30; Stop 02/19/17 at 13:31; Status DC Albuterol/ Ipratropium (Duoneb Neb) 1 ampule ONCE ONCE INH Last administered on 02/19/17at 13:57; Start 02/19/17 at 13:30; Stop 02/19/17 at 13:31; Status DC Budesonide/ Formoterol Fumarate (Symbicort 160-4.5 Mcg Inh) 2 puff Q12HR INH Last administered on 02/22/17at 08:36; Start 02/19/17 at 21:00 Bumetanide (Bumetanide) 2 mg DAILY PO Last administered on 02/22/17at 08:35; Start 02/20/17 at 09:00 Carbamazepine (TEGretol) 200 mg TID PO Last administered on 02/22/17at 12:25; Start 02/19/17 at 18:00 Diltiazem HCl (Cardizem Cd) 300 mg DAILY PO ; Start 02/19/17 at 16:00; Stop 11/27 at 16:00; Status DC Metoprolol Tartrate (Lopressor) 25 mg BID PO Last administered on 02/22/17at 08: 34; Start 02/19/17 at 15:00 Montelukast Sodium (Singulair) 10 mg HS PO Last administered on 02/21/17at 21:08 ; Start 02/19/17 at 21:00 Theophylline (René-24) 400 mg DAILY PO Last administered on 02/22/17at 08:34; Start 02/20/17 at 09:00 Non-Formulary Medication 175 mcg DAILY PO ; Start 02/20/17 at 09:00; Status UNV Atorvastatin Calcium (Lipitor) 40 mg HS PO Last administered on 02/21/17at 21:08 ; Start 02/19/17 at 21:00 Albuterol/ Ipratropium (Duoneb Neb) 1 ampule Q6HR NEB INH Last administered on 02/22/17at 09:33; Start 02/19/17 at 16:00 Albuterol Sulfate (Albuterol Neb) 2.5 mg Q2HR NEB PRN INH SHORTNESS OF BREATH; Start 02/19/17 at 14:45 Methylprednisolone Sodium Succinate (SoluMEDROL INJ) 40 mg Q8H IV PUSH Last administered on 02/22/17at 10:28; Start 02/19/17 at 16:00 Acetaminophen (Tylenol) 650 mg Q4H PRN PO TEMP > 100.4; Start 02/19/17 at 14:45 ; Stop 02/21/17 at 22:51; Status DC Ondansetron HCl (Zofran Inj) 4 mg Q6H PRN IVP NAUSEA OR VOMITING; Start at 14:45; Stop 02/21/17 at 22:52; Status DC Heparin Sodium (Porcine) (Heparin Inj) 5,000 units Q8H SQ ; Start 02/19/17 at 16 :00; Stop 02/19/17 at 16:00; Status DC Naloxone HCl (Narcan Inj) 0.4 mg UNSCH PRN IV PUSH SEE LABEL COMMENTS; Start at 14:45 Senna/Docusate Sodium (Eleni-Colace) 1 tab BID PO Last administered on at 21:07; Start 02/19/17 at 21:00; Stop 02/21/17 at 22:51; Status DC Magnesium Hydroxide (Milk Of Magnesia Liq) 30 ml Q12H PRN PO Mild constipation ; Start 02/19/17 at 14:45 Sennosides (Senokot) 17.2 mg Q12H PRN PO Moderate constipation; Start 02/19/17 at 14:45 Bisacodyl (Dulcolax Supp) 10 mg DAILY PRN RECTAL SEVERE CONSITIPATION; Start at 14:45 Lactulose (Lactulose Liq) 30 ml DAILY PRN PO SEVERE CONSITIPATION; Start at 14:45 Diltiazem HCl (Cardizem Cd) 300 mg DAILY PO Last administered on 02/22/17at 08: 35; Start 02/19/17 at 20:00 Apixaban (Eliquis) 2.5 mg BID PO Last administered on 02/22/17at 08:34; Start at 16:00 Levothyroxine Sodium (Synthroid) 100 mcg DAILY@0600 PO Last administered on at 05:57; Start 02/20/17 at 06:00 Levothyroxine Sodium (Synthroid) 75 mcg DAILY@0600 PO Last administered on 02/22at 05:57; Start 02/20/17 at 06:00 Guaifenesin (Mucinex Er) 600 mg BID PO Last administered on 02/22/17at 08:34; Start 02/20/17 at 10:00 Dextrose (D50w (Vial) Inj) 50 ml UNSCH PRN IV PUSH HYPOGLYCEMIA-SEE COMMENTS; Start 02/20/17 at 13:00 Glucagon (Glucagon Inj) 1 mg UNSCH PRN OTHER HYPOGLYCEMIA-SEE COMMENTS; Start 02/20/17 at 13:00 Insulin Aspart (NovoLOG SUPPLEMENTAL SCALE) 1 ACHS SLIDING SCALE SQ Last administered on 02/22/17at 12:26; Start 02/20/17 at 17:00 Acetaminophen (Tylenol) 650 mg Q4H PRN PO TEMP > 100.4; Start 02/21/17 at 15:45 Ondansetron HCl (Zofran Inj) 4 mg Q6H PRN IVP NAUSEA OR VOMITING; Start at 15:45 Metoclopramide HCl (Reglan Inj) 5 mg Q6H PRN IV PUSH NAUSEA OR VOMITING; Start 02/21/17 at 15:45 Acetaminophen (Tylenol) 650 mg Q6H PRN PO PAIN SCALE 1 TO 2; Start 02/21/17 at 15:45 Oxycodone/ Acetaminophen (Percocet 5-325 Mg) 1 tab Q6H PRN PO PAIN SCALE 3 TO 5; Start 02/21/17 at 15:45 Oxycodone/ Acetaminophen (Percocet 10-325 Mg) 1 tab Q6H PRN PO PAIN SCALE 6 TO 10; Start 02/21/17 at 15:45 Morphine Sulfate (Morphine Inj) 2 mg Q3H PRN IV PUSH Pain 3-5; if unable to take PO; Start 02/21/17 at 15:45 Morphine Sulfate (Morphine Inj) 4 mg Q3H PRN IV PUSH Pain 6-10;if unable to take PO; Start 02/21/17 at 15:45 Naloxone HCl (Narcan Inj) 0.4 mg UNSCH PRN IV PUSH SEE LABEL COMMENTS; Start at 15:45 Senna/Docusate Sodium (Eleni-Colace) 1 tab BID PO Last administered on at 08:35; Start 02/21/17 at 21:00 Magnesium Hydroxide (Milk Of Magnesia Liq) 30 ml Q12H PRN PO Mild constipation ; Start 02/21/17 at 15:45; Stop 1/12/18 at 15:49; Status DC Sennosides (Senokot) 17.2 mg Q12H PRN PO Moderate constipation; Start 02/21/17 at 15:45; Stop 02/21/17 at 15:49; Status DC Bisacodyl (Dulcolax Supp) 10 mg DAILY PRN RECTAL SEVERE CONSITIPATION; Start at 15:45; Stop 02/21/17 at 15:49; Status DC Lactulose (Lactulose Liq) 30 ml DAILY PRN PO SEVERE CONSITIPATION; Start at 15:45; Stop 02/21/17 at 15:49; Status DC Haloperidol Lactate (Haldol Inj) 2 mg ONCE ONCE IM Last administered on at 23:24; Start 02/21/17 at 23:00; Stop 02/21/17 at 23:01; Status DC A/P Assessment and Plan Atrial fibrillation. The patient was recently started on Eliquis. MEDS PER CARDIO COPD EXACERBATION. She is on three liters of oxygen nasal cannula.CONTINUE DUONEBS AND MUCINEX AND STEROIDS AND INCENTIVE SPIROMETRY History of dyslipidemia. STATIN Hypothyroidism CHECK TSH AND FREE T4 HOME MEDS Seizure disorder CONTINUE HOME MEDS Hypertension GOOD PRESSURE CONTROL History of breast cancer. Congestive heart failure. MONITOR LABS RENAL FUNCTIONS RENAL INSUFFICIENCY- DEHYDRATION VS CHRONIC CVA six years ago. Headaches Hysterectomy Tubal ligation Anxiety/depression HOME MEDICATIONS NEEDS PT AND OT NEEDS SNF PT RECOMMENDS SNF Discharge Planning DC TO SNF WHEN BED AVAILABLE Jonel Martinez DO Feb 22, 2017 12:45
[2017-02-22] MEDS ORDERED: guaiFENesin ER PO (12:52)
[2017-02-22] MEDS ORDERED: TEGR200T PO (12:52)
[2017-02-22] MEDS ORDERED: APIX2.5T PO (12:52)
[2017-02-22] MEDS ORDERED: Albuterol-Ipratropium Neb INH (12:52)
[2017-02-22] MEDS ORDERED: METO25TA3 PO (12:52)
[2017-02-22] MEDS ORDERED: PROT40TA PO (12:52)
[2017-02-22] MEDS ORDERED: OXYC1TAB63 PO (12:52)
[2017-02-22] MEDS ORDERED: DILT1TAB22 PO (12:52)
[2017-02-22] MEDS ORDERED: NITR0.4S SL (12:52)
[2017-02-22] MEDS ORDERED: ROSU20 PO (12:52)
[2017-02-22] MEDS ORDERED: PRED20 PO (12:52)
--- NOTE | 2017-02-22 12:56 | HHI.DS ---
Discharge Summary Admission Date Feb 19, 2017 at 13:39 Discharge Date: Feb 22, 2017 Admitting Diagnosis COPD EXACERBATION,ATRIAL FLUTTER (1) Acute on chronic systolic (congestive) heart failure ICD Code: I50.23 - Acute on chronic systolic (congestive) heart failure Diagnosis: Principal (2) COPD exacerbation ICD Code: J44.1 - Chronic obstructive pulmonary disease with (acute) exacerbation Diagnosis: Principal Status: Acute (3) Atrial fibrillation ICD Code: I48.91 - Unspecified atrial fibrillation Diagnosis: Principal Procedures NO Brief History - From Admission 76 years old female with history of atrial fibrillation presented to the ED complaining of substernal chest pain 8 out of 10 at rest nonradiating, improved with 2 of nitroglycerin when sublingual,. Associated with short of breath. No cough no nausea vomiting no diaphoresis Patient had a heart rate of 110 patient initially refused to be admitted but then she agreed. When I saw her she was with no chest pain, she was breathing okay on 2 L nasal cannula . No abdominal pain diarrhea constipation, no dysuria urgency frequency CBC/BMP: 02/22/17 0740 02/22/17 0740 Significant Findings Laboratory Tests Test 02/20/17 15:04 02/21/17 06:46 02/21/17 23:10 02/22/17 07:40 Neutrophils (%) (Auto) 85.2 % (16.0-70.0) 81.7 % (16.0-70.0) 77.8 % (16.0-70.0) Neutrophils # (Auto) 9.0 TH/MM3 (1.8-7.7) 8.6 TH/MM3 (1.8-7.7) 9.5 TH/MM3 (1.8-7.7) Blood Urea Nitrogen 35 MG/DL (7-18) 40 MG/DL (7-18) 48 MG/DL (7-18) Creatinine 1.59 MG/DL (0.50-1.00) 1.64 MG/DL (0.50-1.00) 1.64 MG/DL (0.50-1.00) Random Glucose 299 MG/DL (74-106) 242 MG/DL (74-106) 214 MG/DL (74-106) Estimat Glomerular Filtration Rate 32 ML/MIN (>89) 31 ML/MIN (>89) 31 ML/MIN (>89) Red Blood Count 3.95 MIL/MM3 (4.00-5.30) Mean Corpuscular Hemoglobin 34.7 PG (27.0-34.0) Phosphorus Level 2.4 MG/DL (2.5-4.9) Aspartate Amino Transf (AST/SGOT) 10 U/L (15-37) Chloride Level 97 MEQ/L (98-107) Hemoglobin A1c 7.9 % (4.3-6.0) Urine Turbidity HAZY (CLEAR) Urine Protein 30 mg/dL (NEG-TRACE) Urine Leukocyte Esterase SMALL (NEG) Urine WBC 8 /hpf (0-5) Urine Bacteria FEW /hpf (NONE) Urine Mucus MANY /lpf (OCC) White Blood Count 12.2 TH/MM3 (4.0-11.0) Total Protein 8.4 GM/DL (6.4-8.2) Sodium Level 135 MEQ/L (136-145) B-Type Natriuretic Peptide 458 PG/ML (0-100) Imaging Last Impressions Chest X-Ray 02/19/17 0834 Signed Impressions: Service Date/Time: Sunday, February 19, 2017 08:58 - CONCLUSION: 1. Extensive hardware obscures multiple areas of both hemithoraces. 2. Grossly, lungs are clear without effusion. 3. Heart size is borderline but appears to be well compensated. Pj Angeles MD PE at Discharge GENERAL: AWAKE ALERT AND ORIENTED- LESS SOB SKIN: Warm and dry. HEAD: Atraumatic. Normocephalic. EYES: Pupils equal and round. No scleral icterus. No injection or drainage. EOMI ENT: No nasal bleeding or discharge. Mucous membranes pink and moist.TONGUE MIDLINE NECK: Trachea midline. No JVD. CARDIOVASCULAR: IRRegular rate and rhythm. S1, S2 NO S3 OR S4 RESPIRATORY: No accessory muscle use. COARSE WITH WHEEZES. Breath sounds equal bilaterally. GASTROINTESTINAL: Abdomen soft, non-tender, nondistended. Hepatic and splenic margins not palpable. OBESE MUSCULOSKELETAL: Extremities without clubbing, cyanosis, No obvious deformities. +2 LE EDEMA NEUROLOGICAL: Awake and alert. No obvious cranial nerve deficits. Motor grossly within normal limits. 4 out of 5 muscle strength in the arms and legs. Normal speech. PSYCHIATRIC: INAppropriate mood and affect; insight and judgment ABnormal. Hospital Course Ms. Jean is a 76-year-old white female with a history of atrial fibrillation ON ELIQUIS AND HYPERLIPIDEMIA, HYPOTHYROIDISM, SEIZURE DISORDER, HYPERTENSION, CHRONIC COPD ON OXYGEN,CHF AND ANXIETY/ DEPRESSION. She developed substernal chest pain at rest which was NOTED TO IMPROVE with nitroglycerin. She was brought by EMS to the emergency room. CHEST PAIN RESOLVED BEFORE BEING ADMITTED. She was found to have atrial flutter with increased ventricular response of 110 beats per minute. THEREFORE SHE WAS ADMITTED 02-20 STILL SOB PT AND OT INCREASE ACTIVITY AM LABS DW RN AND PT CONTINUE DUONEBS AND MUCINEX AND STEROID 02-21 PATIENT NOTED TO FALL TODAY CONFUSED DENIES ANY INJURIES FROM FALL NEEDS TO GO TO SNF DW RN AND PT COMPLAINS OF PAIN FROM KNEES AND HEADACHES Assessment and Plan Atrial fibrillation. The patient was recently started on Eliquis. MEDS PER CARDIO COPD EXACERBATION. She is on three liters of oxygen nasal cannula.CONTINUE DUONEBS AND MUCINEX AND STEROIDS AND INCENTIVE SPIROMETRY History of dyslipidemia. STATIN Hypothyroidism CHECK TSH AND FREE T4 HOME MEDS Seizure disorder CONTINUE HOME MEDS Hypertension GOOD PRESSURE CONTROL History of breast cancer. Congestive heart failure. MONITOR LABS RENAL FUNCTIONS RENAL INSUFFICIENCY- DEHYDRATION VS CHRONIC CVA six years ago. Headaches Hysterectomy Tubal ligation Anxiety/depression HOME MEDICATIONS NEEDS PT AND OT NEEDS SNF PT RECOMMENDS SNF Pt Condition on Discharge: Fair Discharge Disposition: Discharge to SNF Discharge Time: > 30 minutes Discharge Instructions DIET: Follow Instructions for: Heart Healthy Diet, Diabetic Diet Speech Therapy-Diet Recommends: Regular Activities you can perform: Weight Bearing as Yulia Follow up Referrals: Cardiology - 2 Weeks with Wilfred Graham MD PCP Follow-up - 1 Week SNF/[facility]/ New Medications: Pantoprazole (Protonix) 40 Mg Tab 40 MG PO DAILY for Reflux, #30 TAB 0 Refills Prednisone (Prednisone) 20 Mg Tab 20 MG PO BID for Shortness of Breath for 30 Days, #60 TAB 0 Refills Apixaban (Eliquis) 2.5 Mg Tab 2.5 MG PO BID for Blood Clot Prevention, #60 TAB Oxycodone HCl/Acetaminophen (Oxycodone-Acetaminophen 5-325) 5 Mg-325 Mg Tablet 1 TAB PO Q6H PRN for PAIN SCALE 3 TO 5, #30 TAB [Albuterol-Ipratropium Neb] () 1 AMPULE NEBU 1 AMPULE INH Q6HR NEB for Shortness of Breath, #180 AMPULE [guaiFENesin ER] () 600 MG TABCR 600 MG PO BID, #60 TAB Continued Medications: Acetaminophen (Tylenol) 325 Mg Tab 650 MG PO Q4H PRN for PAIN/TEMP >100, TAB 0 Refills Albuterol 18 GM Inh (Ventolin Hfa 18 GM Inh) 90 Mcg/Act Aer 1 PUFF INH Q4H PRN for WHEEZING, #1 INHALER 0 Refills Bisacodyl Supp (Dulcolax Supp) 10 Mg Supp 10 MG RECTAL DAILY PRN for CONSTIPATION, #12 SUPP 0 Refills If no results 1 day after Milk of Magnesia given Budesonide-Formoterol Inh (Symbicort Inh) 160-4.5 Mcg/Act Aero 2 PUFF INH Q12HR for COPD, #1 INHALER 0 Refills Bumetanide (Bumetanide) 2 Mg Tab 2 MG PO DAILY for Fluid Retention, TAB 0 Refills Carbamazepine (Tegretol) 200 Mg Tab 200 MG PO TID for Seizure Control, #90 TAB 0 Refills (This prescription has been renewed) Diltiazem ER 24 HR (Cardizem LA) 300 Mg Christy 300 MG PO DAILY for HTN, #30 TAB 0 Refills (This prescription has been renewed) Docusate Sodium (Colace) 100 Mg Capsule 200 MG PO DAILY for Bowel Management Levothyroxine (Levothyroxine) 175 Mcg Tab 175 MCG PO DAILY for Thyroid, #30 TAB 0 Refills Magnesium Citrate Liq (Citroma Liq) 300 Ml Liq 296 ML PO DAILY PRN for CONSTIPATION Give in am if no results after enema. Magnesium Hydroxide Liq (Milk of Magnesia Liq) 400 Mg/5 Ml Susp 30 ML PO DAILY PRN for IF NO BM IN 3 DAYS, #1 BOTTLE 0 Refills Metoprolol Tartrate (Metoprolol Tartrate) 25 Mg Tab 25 MG PO BID for HTN, #60 TAB 0 Refills (This prescription has been renewed) Montelukast (Singulair) 10 Mg Tab 10 MG PO HS for Allergies, #30 TAB 0 Refills Nitroglycerin SL (Nitrostat SL) 0.4 Mg Subl 0.4 MG SL DIRECTED PRN for CHEST PAIN, #100 TAB.SL 0 Refills (This prescription has been renewed) 1 tablet under the tongue as needed for chest pain. Repeat every 5 minutes for a total of 3 DOSES or call 911 if NO relief. Potassium Chloride ER (Potassium Chloride ER) 10 Meq Tab 10 MEQ PO DAILY for Electrolyte Replacement, #30 TAB 0 Refills Rosuvastatin (Crestor) 20 Mg Tab 20 MG PO DAILY for Cholesterol Management, #30 TAB 0 Refills (This prescription has been renewed) Theophylline ER 24 HR (Theophylline ER 24 HR) 400 Mg Tab 400 MG PO DAILY for COPD, #30 TAB 0 Refills Additional Information STOP SMOKING Jonel Martinez DO Feb 22, 2017 12:56
== END 2017-02-22 17:05 | DRG 308 ==
LOC: NEPE 08:20 → NEDA 13:39 → OBSVTOIN 14:59 → N04A 19:01
PROVIDERS: ADMIT Hospitalist; ATTEND Hospitalist
DX: I48.91 Unspecified atrial fibrillation (principal); I50.23 Acute on chronic systolic (congestive) heart failure; I24.9 Acute ischemic heart disease, unspecified; J44.1 Chronic obstructive pulmonary disease with (acute) exacerbation; Z99.81 Dependence on supplemental oxygen; I48.92 Unspecified atrial flutter; I11.0 Hypertensive heart disease with heart failure; G40.909 Epilepsy, unspecified, not intractable, without status epilepticus; E03.9 Hypothyroidism, unspecified; E78.5 Hyperlipidemia, unspecified; M19.90 Unspecified osteoarthritis, unspecified site; N28.9 Disorder of kidney and ureter, unspecified; F17.210 Nicotine dependence, cigarettes, uncomplicated; F32.9 Major depressive disorder, single episode, unspecified; F41.9 Anxiety disorder, unspecified; Z85.3 Personal history of malignant neoplasm of breast; Z86.73 Personal history of transient ischemic attack (TIA), and cerebral infarction without residual deficits; Z90.710 Acquired absence of both cervix and uterus; I25.2 Old myocardial infarction; W19.XXXA Unspecified fall, initial encounter; Y92.239 Unspecified place in hospital as the place of occurrence of the external cause
CPT/HCPCS: 71045; 80048; 80053; 81001; 82550; 82552; 82948; 83036; 83605; 83735; 83880; 84100; 84439; 84443; 84484; 85025; 85610; 85730; 87040; 87086; 93005; 94150; 94640; 94664; 96374; 96375; G8987-GO; G8987-GP; G8988-GO; G8988-GP; J1630; J1815; J1940; J2920; J2930